=== PATIENT | male | born 1980 | race Caucasian/White ===

== ENCOUNTER 2019-07-28 09:28 | Outpatient (REF) | payer BC, SELFPAY ==
[2019-07-28 14:02] LABS: BUN 22 mg/dL (7-18); CREATININE 1.01 mg/dL (0.70-1.30); Calcium 9.3 mg/dL (8.5-10.1); Calculated LDL 146 mg/dL; Chloride 101 mmol/L (98-107); Cholesterol 228 mg/dL (<200); Glucose 102 mg/dL (74-106); HDL Cholesterol 50 mg/dL (40-60); Potassium 4.6 mmol/L (3.5-5.1); Sodium 138 mmol/L (136-145); Triglyceride 162 mg/dL (<150)
== END 2019-07-28 09:48 ==
LOC: NCHCN 09:28
PROVIDERS: PCP Specialist/Technologist Athletic Trainer; Visit Provider Nurse Practitioner Family
DX: Z00.00 Encounter for general adult medical examination without abnormal findings (principal); I10 Essential (primary) hypertension
CPT/HCPCS: 80048; 80061

== ENCOUNTER 2019-09-09 13:04 | Outpatient (REF) | payer BC, SELFPAY ==
[2019-09-09 14:39] LABS: COMMENT (LAB VIEW ONLY) 155.13 mg/dL; Microalb ug/mg Crea 6.1 ug/mg Cr
[2019-09-09 18:56] LABS: Anion Gap 12.9 mmol/L (3-11); BUN 23 mg/dL (7-18); CO2 24.1 mmol/L (21.0-32.0); CREATININE 0.83 mg/dL (0.70-1.30); Calcium 9.8 mg/dL (8.5-10.1); Chloride 102 mmol/L (98-107); Glucose 100 mg/dL (74-106); Potassium 4.4 mmol/L (3.5-5.1); Sodium 139 mmol/L (136-145)
== END 2019-09-09 13:24 ==
LOC: NCHCN 13:04
PROVIDERS: PCP Specialist/Technologist Athletic Trainer; Visit Provider Nurse Practitioner Family
DX: I10 Essential (primary) hypertension (principal); E78.5 Hyperlipidemia, unspecified; Z00.00 Encounter for general adult medical examination without abnormal findings
CPT/HCPCS: 80048; 82043; 82570

== ENCOUNTER 2020-09-21 14:14 | Outpatient (REF) | payer OTHER, SELFPAY ==
--- NOTE | 2020-09-21 13:20 | SKI_PTH ---
PATIENT: Pal Alexander LOC: [facility] U#:[id number] AGE/SX: 40/M ROOM: RE09/21/[address]: Edd Gil : 1980 BED: DIS: 09/21/2020 SPEC #: [id number] RECD: 09/21/20 17:39 STATUS: MAKENZIE REQ #: [id number] JOSE: 09/21/20 13:[address]: Edd Gil DEPT: Surgical Specimen RECD BY: Ashleigh Plummer ENTERED: 09/21/20 17:40 SP TYPE: KATHIE ALMANZA DR: Dallin Garzon Tissues: 1 - SKIN BIOPSY(SHAVE/PUNCH) Procedures: SKIN LEVEL 4 Comments: [id number]
== END 2020-09-21 14:34 ==
LOC: NCHCN 14:14
PROVIDERS: PCP Specialist/Technologist Athletic Trainer; Visit Provider Nurse Practitioner Family
DX: D22.5 Melanocytic nevi of trunk (principal)
CPT/HCPCS: 88305

== ENCOUNTER 2023-03-25 07:52 | Emergency (ER) | payer BC, SELFPAY ==
[2023-03-25] VITALS (50 sets, daily range): BP systolic 125–171; BP diastolic 63–108; PULSE 67–99; RESP 11–22; TEMP 37; O2SAT 97
--- NOTE | 2023-03-25 07:45 | RT.EKG_ITS ---
APPROVED REPORT Exam: Resting ECG Reason for Exam: possible stroke Patient Location: E HR:75 bpm ECG Measurements Heart Rate 75 AXIS [place] 142 P 35 QRSd 93 QRS -29 QT 370 T 24 QTc 413 Conclusion Sinus rhythm...normal P axis, V-rate 60- 99
--- NOTE | 2023-03-25 08:00 | DI.CT_ITS ---
Exam(s) CT BRAIN NECK CTA EXAM: CT BRAIN NECK CTA CLINICAL HISTORY: CN III palsy, facial droop. TECHNIQUE: Imaging Protocol: Axial CT angiography was performed with multi-slice acquisition and mu lti-planar and/or 3D reconstructions. CONTRAST MATERIAL: Intravenous: Omnipaque 350 contrast volume:85 mL COMPARISON: No exams were available for comparison FINDINGS: CT Head W/O and W: Ventricles and Extra axial spaces: Hemorrhage is seen in the 3rd and lateral ventricles as described below. Hemorrhage: There is acute hemorrhage seen in the right mid brain and tectum with hemorrhage extendin g into the 3rd ventricle. There is also hemorrhage seen in the frontal horns of both lateral ventric les. There does appear to be some mass effect on the sylvian aqueduct. There is no significant dila tation of the ventricular system at this time. Cerebral parenchyma: Please see the above section under hemorrhage. Midline shift: None. Brainstem/Cerebellum: Normal. Calvarium: Normal. Visualized Paranasal sinuses/Mastoids: Clear. Soft Tissues: Unremarkable. Enhancement: Unremarkable. CTA Neck W: Common Carotid: Right: No dissection, occlusion or significant stenosis. Left: No dissection, occlusion or significant stenosis. External Carotid: Right: No occlusion or significant stenosis. Left: No occlusion or significant stenosis. Internal Carotid: Right: No dissection, occlusion or significant stenosis. Left: No dissection, occlusion or significant stenosis. Vertebral Artery: Right: No dissection, occlusion or significant stenosis. Left: No dissection, occlusion or significant stenosis. Lung Apices: Normal. Bones: Within normal limits for the patient's age. Soft Tissues: Normal. Thyroid gland: Unremarkable. CTA Brain W: Internal Carotid Arteries: Normal. Anterior Cerebral Arteries: Right: No aneurysm, occlusion or significant stenosis. Left: No aneurysm, occlusion or significant stenosis. Middle Cerebral Arteries: Right: No aneurysm, occlusion or significant stenosis. Left: No aneurysm, occlusion or significant stenosis. Posterior Cerebral Arteries: Right: No aneurysm, occlusion or significant stenosis. Left: No aneurysm, occlusion or significant stenosis. Vertebral Arteries: Right: No aneurysm, occlusion or significant stenosis. Left: No aneurysm, occlusion or significant stenosis. Basilar Artery: No aneurysm, occlusion or significant stenosis. IMPRESSION: 1. No large vessel occlusion or significant stenosis on the CT angiography of the head. 2. Acute intracranial hemorrhage in the right mid brain/tectum extending into the 3rd ventricle as we ll as the frontal horns of both lateral ventricles. There is question of mass effect on the aqueduct of Sylv[place]. There is no significant dilatation of the ventricular system at this time. 3. No occlusion or significant stenosis on the CT angiography of the neck. RADIATION DOSE DELIVERED: 2,169.1mGy.cm Total DLP DATA REPOSITORY: All CT scans at this facility are submitted to the National Radiology Data Registry (NRDR) Dose Index Registry (DIR) with the [employer] (ACR). RADIATION OPTIMIZATION: All CT scans at this facility use at least one of these dose optimization te chniques: automated exposure control; mA and/or kV adjustment per patient size (includes targeted exa ms where dose is matched to clinical indication); or iterative reconstruction.
[2023-03-25 08:09] LABS: Abs Immature Grans 0.01 10^3/uL (0.0-0.06); Absolute Basophil Count 0.04 10^3/uL (0.0-0.2); Absolute Eosinophil Count 0.11 10^3/uL (0.0-0.7); Absolute Lymphocyte Count 2.51 10^3/uL (1.2-3.4); Absolute Monocyte Count 0.62 10^3/uL (0.1-0.8); Absolute Neutrophil Count 4.34 10^3/uL (1.2-6.7); Basophils % 0.5; Eosinophils % 1.4; HCT 45.7 % (40.0-50.0); Immature Grans % 0.1; Lymphocytes % 32.9; MCH 28.7 pg (27.0-33.0); MCV 82 fL (80-95); MPV 9.5 fL (8.0-11.0); Monocytes % 8.1; Platelet Count 211 10^3/uL (130-400); RBC 5.58 10^6/uL (4.36-5.78); RDW 12.8 % (11.8-14.1); RDW-SD 38.2 fL; WBC 7.63 10^3/uL (4.4-10.8)
--- NOTE | 2023-03-25 08:13 | ED.GENADUL_ITS ---
Discharge Plan Disposition Specific Acute Inpt Facility: [facility] Condition: Serious Discharge Details Chief Complaint: CVA/TIA Clinical Impression: Intracranial hemorrhage Primary Care Provider: Teresa Jarrell V ED Provider: David Waldron Home Meds and New Rx's Prescriptions: No Action No Known Home Meds Medical Decision Making 42 yo male with hx of htn but doesn't take his medication for this, who comes in with chief complaint of double vision starting around 745am this morning. He states yesterday and this morning when he woke up he felt well. He states he was playing video games when he developed double vision, felt the right side of his face was numb and he felt tingling in his left arm. Denies fevers, chills, chest pain or shortness of breath. He does have a mild headache as well. He is ambulatory on arrival and is caox4 speaking clearly. His right eye is down and out. When he closes his right eye his double vision resolves. He is able to move both eyes in all directions other then the right eye he can't look down, the eye will just move to the right and down position. He has very mild facial paralysis with smile asymmetry with the right corner slightly lower then the left corner. No drift, good strength in all extremities and no deficits with sensation in the arms, NIH of 2 due to 1 for horizontal extraocular movements and 1 for facial palsy. pt's ct shows heomrrohage of the right midbrain/tectum extending into the 3rd ventricle, pt stable no new symptoms or exam changes, bp 129/72 now, [place] [facility] [place] images and case and did not feel it required surgical intervention and then spoke with neurology who reviewed case and images and requested pt be transferred to their ED for eval, accepting provider is Dr. Leavitt, pt stable, his right eye seems to have improved slightly, only mildly off midline at this time. GCS 15. He is on a nicardipine drip now as his bp was 168 systolic and local ems can't transport with this medication, he will be transported via [facility] Differential Diagnosis Differential Diagnosis: CN III palsy, cva, aneurysm Imaging Data Radiologic Study: Attestation: I personally reviewed and interpreted this imaging study as follows: Imaging: X-Ray Radiologist's impression: no acute findings Radiologic Study #2: Attestation: I personally reviewed and interpreted this imaging study as follows: Imaging: CT Scan Radiologist's impression: IMPRESSION: 1. No large vessel stenosis or occlusion. 2. Hemorrhage of the right midbrain/tectum extending anteriorly into the 3rd ventricle as well as into the frontal horns of the lateral ventricles. There is questionable mass effect on the aqueduct of Sylvius. No overt hydrocephalus. 3. The basal veins of Matty are not clearly visualized. This may reflect thrombosis or anatomic variation. Lab Data Lab results reviewed: Yes I reviewed the patient's lab results. ECG Data Attestation: I personally reviewed and interpreted this ECG (s) as follows: Prior ECG tracings: not available for review Interpretation: sinus rate of 75, pr 142, qtc 413, no acute ischemic findings HPI General Mode of arrival: ambulatory . Date/Time Provider Initiated Documentation: 03/25/23 07:57 . Limitations to Documentation: no limitations . Information obtained by: patient . History of Present Illness 42 year old M presents to the emergency department with the chief complaint of double vision, described as moderate, and is localized to the head. Patient reports no radiation. Patient started experiencing this minute(s) (30) and it has been constant. No relieving factors improve symptom(s), No exacerbating factors reported . Patient notes denies chest pain, fever/chills and shortness of breath. Patient did receive the following treatments prior to arrival, none Related Data Home Medications Medication Instructions Recorded Confirmed Unknown [No Known Home Meds] 03/25/23 03/25/23 Allergies Allergy/AdvReac Type Severity Reaction Status Date / Time No Known Allergies Allergy Unverified 03/25/23 07:59 General Stated Complaint: CVA/TIA MARKO: 2 Review of Systems All systems reviewed & are unremarkable except as noted in HPI and below Constitutional Constitutional: Denies chills and Denies fever(s) ENT Ears, Nose, Mouth, and Throat: Denies change in voice Cardiovascular Cardiovascular: Denies chest pain and Denies dyspnea Respiratory Respiratory: Denies cough and Denies dyspnea Gastrointestinal Gastrointestinal: Denies abdominal pain, Denies nausea and Denies vomiting Integumentary/Breasts Skin/Breast: Denies rash PFSH All Active Problems (Updated 03/25/23 @ 10:30 by David Waldron MD) Intracranial hemorrhage (Acute) Social History Smoking/Tobacco Use Status: Never Smoking risk assessment performed?: Yes Alcohol Intake: current Alcohol Intake frequency: 0-2 drinks per day Substance use type: does not use Do you feel safe at home: Yes Do you feel safe in your relationship?: Yes Exam Const General: no acute distress Orientation: alert HENNJ Head: normal to inspection Ears: external ears normal General nose exam: external nose normal Mouth: moist mucous membranes Eyes Periorbital: periorbital findings normal Conjunctivae: conjunctivae normal Neck Neck: normal visual inspection Resp Effort & Inspection: normal respiratory effort and able to speak in complete sentences Cardio Rate: regular rate Skin General skin exam: no rashes or lesions noted Neuro General: patient alert and patient oriented x3 Extrem General: normal to inspection Psych Mental Status: mental status grossly normal Course Vital Signs Vital signs: Vital Signs Pulse 76 03/25/23 07:56 Respiratory Rate 22 03/25/23 07:56 Blood Pressure 163/106 H 03/25/23 07:56 Pulse Oximetry 97 03/25/23 07:56 Pulse 76 03/25/23 07:56 Respiratory Rate 21 03/25/23 08:05 Respiratory Effort Normal 03/25/23 08:05 Blood Pressure 163/106 H 03/25/23 07:56 Blood Pressure Position Supine 03/25/23 07:56 Pulse Oximetry 97 03/25/23 07:56 Pain Level 4 03/25/23 07:56 Lab/Test Results Lab/Test Results: Laboratory Tests Range/Units 03/25/23 08:00 WBC (4.4-10.8) 10^3/uL 7.63 RBC (4.36-5.78) 10^6/uL 5.58 Hgb (13.5-17.5) g/dL 16.0 Hct (40.0-50.0) % 45.7 MCV (80-95) fL 82 MCH (27.0-33.0) pg 28.7 MCHC (32.0-36.0) % 35.0 RDW (11.8-14.1) % 12.8 Plt Count (130-400) 10^3/uL 211 MPV (8.0-11.0) fL 9.5 Immature Gran % 0.1 Neutrophils % 57.0 Lymphocytes % 32.9 Monocytes % 8.1 Eosinophils % 1.4 Basophils % 0.5 Nucleated RBC % (0.0-0.3) % 0.0 Absolute Neutrophils (1.2-6.7) 10^3/uL 4.34 Absolute Lymphocytes (1.2-3.4) 10^3/uL 2.51 Absolute Monocytes (0.1-0.8) 10^3/uL 0.62 Absolute Eosinophils (0.0-0.7) 10^3/uL 0.11 Absolute Basophils (0.0-0.2) 10^3/uL 0.04 Critical Care Time Critical Care Time Critical Care Time: Yes Total Critical Care Time: 60 (minutes) Attestation: Time spent reviewing labs, frequent reassessments and hemodynamic monitoring in a patient with intracranial hemorrhage and potential to deteriorate at any time and also requiring IV nicardipine for blood pressure control
[2023-03-25 08:23] LABS: PTT Activated 27.5 sec (21.5-31.9); Prothrombin Time 10.1 sec (9.3-11.0)
[2023-03-25 08:36] LABS: ALT 102 U/L (16-63); AST 31 U/L (15-37); Albumin 4.6 g/dL (3.4-5.0); Alkaline Phosphatase 95 U/L (46-116); Anion Gap 8.5 mmol/L (3-11); BUN 17 mg/dL (7-18); Bilirubin, Total 1.1 mg/dL (0.2-1.0); CO2 29.5 mmol/L (21.0-32.0); CREATININE 1.1 mg/dL (0.70-1.30); Calcium 9.5 mg/dL (8.5-10.1); Chloride 104 mmol/L (98-107); Estimated GFR 86.49 (mL/min/1.73m2); Glucose 124 mg/dL (74-106); Magnesium 2.1 mg/dL (1.8-2.4); Potassium 4.1 mmol/L (3.5-5.1); Sodium 142 mmol/L (136-145); TSH (W/Ref FT4) 1.49 uIU/mL (0.36-3.74); Total Protein 8.6 g/dL (6.4-8.2); Troponin I < 50 ng/L (<or=60)
[2023-03-25] MEDS: Normal Saline - Diluent 50 ML VIAL IJ (08:37)
[2023-03-25] MEDS: Omnipaque 350 MG/ML 100 ML BTL 85 ML IJ (08:37)
[2023-03-25] MEDS: Normal Saline Flush 10 ML SYR IVP (08:38)
[2023-03-25 08:40] LABS: ETHANOL BLOOD < 3.0 mg/dL (<10)
--- NOTE | 2023-03-25 08:41 | DI.RAD_ITS ---
Exam(s) XR CHEST 1V IN DI DEPT EXAM: XR CHEST 1V IN DI DEPT CLINICAL HISTORY: cva TECHNIQUE: 2D digital imaging was performed of the chest. One image was obtained. An AP view was ob tained. COMPARISON: No exams were available for comparison FINDINGS: MEDIASTINUM: Normal. HEART: Normal. PULMONARY VASCULATURE: Normal. LUNGS: Clear. PLEURAL SPACE: No pleural effusion or pneumothorax. BONE:Within normal limits for the patient's age. OTHER FINDINGS:Normal. IMPRESSION: No acute pulmonary findings. DATA REPOSITORY: RADIATION DOSE DELIVERED:
--- NOTE | 2023-03-25 09:11 | DI.VRAD_ITS ---
PROCEDURE INFORMATION: Exam: XR Chest Exam date and time: 03/25/2023 8:37 AM Age: 42 years old Clinical indication: Other: Cn iii palsy, facial droop TECHNIQUE: Imaging protocol: Radiologic exam of the chest. Views: 1 view. COMPARISON: CT BRAIN NECK CTA 03/25/2023 8:18 AM FINDINGS: Lungs: Unremarkable. No consolidation. Pleural spaces: Unremarkable. No pleural effusion. No pneumothorax. Heart/Mediastinum: Unremarkable. No cardiomegaly. Bones/joints: Unremarkable. IMPRESSION: No acute findings. Dictated and Authenticated by: Bryan Beltran MD. Ordering:ADALGISA Hernandez MD
--- NOTE | 2023-03-25 09:11 | DI.VRAD_ITS ---
Addendum created by Bryan Beltran MD on 03/25/2023 9:11:20 AM EDT: THIS REPORT CONTAINS FINDINGS THAT MAY BE CRITICAL TO PATIENT CARE. The findings were verbally communicated via telephone conference with David Waldron at 9:06 AM EDT on 03/25/2023. The findings were acknowledged and understood. Initial report created on 03/25/2023 9:10:35 AM EDT: PROCEDURE INFORMATION: Exam: CTA Head With Contrast, Arteriography Exam date and time: 03/25/2023 8:18 AM Age: 42 years old Clinical indication: Stroke-like symptoms; Other: Cn iii palsy, facial droop TECHNIQUE: Imaging protocol: Computed tomographic angiography of the head with contrast. Exam focused on the arteries. 3D rendering (Not supervised by radiologist): MIP and/or 3D reconstructed images were created by the technologist. Contrast material: OMNIPAQUE 350; Contrast volume: 85 ml; Contrast route: INTRAVENOUS (IV); COMPARISON: No relevant prior studies available. FINDINGS: ANTERIOR CIRCULATION: Right internal carotid artery: Intracranial segment is patent with no significant stenosis. No aneurysm. Right middle cerebral artery: No occlusion or significant stenosis. No aneurysm. Right anterior cerebral artery: No occlusion or significant stenosis. No aneurysm. Left internal carotid artery: Intracranial segment is patent with no significant stenosis. No aneurysm. Left middle cerebral artery: No occlusion or significant stenosis. No aneurysm. Left anterior cerebral artery: No occlusion or significant stenosis. No aneurysm. POSTERIOR CIRCULATION: Right vertebral artery: No occlusion or significant stenosis. No aneurysm. Left vertebral artery: No occlusion or significant stenosis. No aneurysm. Basilar artery: No occlusion or significant stenosis. No aneurysm. Right posterior cerebral artery: No occlusion or significant stenosis. No aneurysm. Left posterior cerebral artery: No occlusion or significant stenosis. No aneurysm. Brain: Retrocerebellar cysts. Cerebral ventricles: Hemorrhage of the right midbrain/tectum extending anteriorly into the 3rd ventricle as well as into the frontal horns of the lateral ventricles. There is questionable mass effect on the aqueduct of Sylvius. No overt hydrocephalus. Bones/joints: Unremarkable. No acute fracture. Soft tissues: Unremarkable. IMPRESSION: 1. No large vessel stenosis or occlusion. 2. Hemorrhage of the right midbrain/tectum extending anteriorly into the 3rd ventricle as well as into the frontal horns of the lateral ventricles. There is questionable mass effect on the aqueduct of Sylvius. No overt hydrocephalus. 3. The basal veins of Matty are not clearly visualized. This may reflect thrombosis or anatomic variation. PROCEDURE INFORMATION: Exam: CTA Neck With Contrast Exam date and time: 03/25/2023 8:18 AM Age: 42 years old Clinical indication: Stroke-like symptoms; Other: Cn iii palsy, facial droop TECHNIQUE: Imaging protocol: Computed tomographic angiography of the neck with contrast. 3D rendering (Not supervised by radiologist): MIP and/or 3D reconstructed images were created by the technologist. Contrast material: OMNIPAQUE 350; Contrast volume: 85 ml; Contrast route: INTRAVENOUS (IV); COMPARISON: No relevant prior studies available. FINDINGS: Right common carotid artery: No stenosis. No dissection or occlusion. Right internal carotid artery: No stenosis of the extracranial segment. No dissection or occlusion. Right external carotid artery: No occlusion or stenosis of the origin. Left common carotid artery: No stenosis. No dissection or occlusion. Left internal carotid artery: No stenosis of the extracranial segment. No dissection or occlusion. Left external carotid artery: No occlusion or stenosis of the origin. Right vertebral artery: No stenosis. No dissection or occlusion. Left vertebral artery: No stenosis. No dissection or occlusion. Soft tissues: Normal. No significant soft tissue swelling. Bones/joints: No acute fracture. IMPRESSION: No stenosis or occlusion. REFERENCES: NASCET CRITERIA. The degree of stenosis in the cervical segment of the internal carotid artery is based on NASCET criteria. Normal is no stenosis. Mild is less than 50% stenosis. Moderate is 50-69% stenosis. Severe is 70% to 99% stenosis. Total occlusion is no detectable patent lumen. Dictated and Authenticated by: Bryan Beltran MD. Ordering:ADALGISA Hernandez MD
[2023-03-25] MEDS: niCARdipine 25 MG in Normal Saline 240 ML 50 MG IV (10:21)
[2023-03-25] MEDS: Acetaminophen 500 MG TAB (11:10)
[2023-03-25 11:38] LABS: Bilirubin Negative (Negative); Blood Negative (Negative); Clarity Clear (Clear); Glucose Negative (Negative); Ketones Negative (Negative); Leukocyte Esterase Negative (Negative); Nitrite Negative (Negative); Specific Gravity 1.015 (1.005-1.025); Urobilinogen 0.2 mg/dL (Up to 0.2); pH 7.5 (5-8)
[2023-03-25 11:44] LABS: *AMPHETAMINES SCREEN URINE Negative (Negative); *BARBITURATES SCREEN URINE Negative (Negative); *BENZODIAZEPINES SCREEN URINE Negative (Negative); Cannabinoids THC Negative (Negative); Cocaine Screen,Urine Negative (Negative); METHADONE URINE SCREEN Negative (Negative); OPIATES URINE SCREEN Negative (Negative)
[2023-03-25 11:46] LABS: Tricyclic Antidepressants Negative (Negative)
== END 2023-03-25 11:16 | disposition short-term general hospital (02) ==
PROVIDERS: Emergency Provider Emergency Medicine; PCP Family Medicine
DX: I62.9 Nontraumatic intracranial hemorrhage, unspecified (principal); I10 Essential (primary) hypertension; R29.702 NIHSS score 2
CPT/HCPCS: 36415; 70496; 70498; 80053; 80307; 93005; 96365; 99291; 71045; 80320; 81003; 83735; 84443; 84484; 85025; 85610; 85730; 93010; J3490

== ENCOUNTER 2023-12-20 16:03 | Outpatient (REF) | payer BC, SELFPAY ==
[2023-12-20 16:28] LABS: AST 35 U/L (15-37); Albumin 4.3 g/dL (3.4-5.0); Alkaline Phosphatase 89 U/L (46-116); Anion Gap 12.5 mmol/L (3-11); BUN 16 mg/dL (7-18); Bilirubin, Total 0.7 mg/dL (0.2-1.0); CO2 27.5 mmol/L (21.0-32.0); CREATININE 1.1 mg/dL (0.70-1.30); Calcium 9.2 mg/dL (8.5-10.1); Calculated LDL 196 mg/dL (<100); Chloride 105 mmol/L (98-107); Cholesterol 279 mg/dL (<200); Estimated GFR 85.95 (mL/min/1.73m2); Glucose 125 mg/dL (74-106); HDL Cholesterol 47 mg/dL (40-60); Potassium 4.5 mmol/L (3.5-5.1); Sodium 145 mmol/L (136-145); Total Protein 7.6 g/dL (6.4-8.2); Triglyceride 183 mg/dL (<150)
[2023-12-20 17:05] LABS: Hemoglobin A1C 5.9 % (<5.7)
[2023-12-20 17:08] LABS: ALT 107 U/L (16-63)
[2023-12-23 18:27] LABS: Testosterone, Total 344 ng/dL (240-950)
== END 2023-12-20 16:04 | disposition home or self-care (01) ==
LOC: NCHCN 16:03
PROVIDERS: PCP Nurse Practitioner Family; Visit Provider Physician Assistant
DX: I10 Essential (primary) hypertension (principal); E29.1 Testicular hypofunction; R73.09 Other abnormal glucose
CPT/HCPCS: 80053; 80061; 84403; 83036

== ENCOUNTER 2024-03-13 17:13 | Observation (INO) | payer BC, SELFPAY ==
[2024-03-13] VITALS (39 sets, daily range): BP systolic 137–172; BP diastolic 62–89; PULSE 71–94; RESP 13–30; TEMP 36.6; O2SAT 92–97
--- NOTE | 2024-03-13 17:15 | DI.CT_ITS ---
Exam(s) CT CERVICAL SPINE WO EXAM: CT CERVICAL SPINE WO CLINICAL HISTORY: Fall, head injury, Hx of CVA. TECHNIQUE: Imaging Protocol: Axial computed tomography images with coronal and sagittal reformatted images were created and reviewed COMPARISON: CT CT BRAIN NECK CTA from 03/25/2023 FINDINGS: Bones: No acute fracture or subluxation. Soft Tissues: Unremarkable. Lung Apices: Clear. IMPRESSION: No acute fracture or subluxation in the cervical spine. RADIATION DOSE DELIVERED: 712.49mGy.cm Total DLP 712.49mGy.cm Total DLP DATA REPOSITORY: All CT scans at this facility are submitted to the National Radiology Data Registry (NRDR) Dose Index Registry (DIR) with the [employer] (ACR). RADIATION OPTIMIZATION: All CT scans at this facility use at least one of these dose optimization te chniques: automated exposure control; mA and/or kV adjustment per patient size (includes targeted exa ms where dose is matched to clinical indication); or iterative reconstruction.
--- NOTE | 2024-03-13 17:15 | DI.CT_ITS ---
Exam(s) CT HEAD - STROKE PROTOCOL EXAM: CT HEAD - STROKE PROTOCOL CLINICAL HISTORY: Syncope, CRUZ. TECHNIQUE: Imaging Protocol: Axial computed tomography images with coronal and sagittal reformatted images were created and reviewed COMPARISON: CT CT BRAIN NECK CTA from 03/25/2023 FINDINGS: Ventricles and Extra axial spaces: Normal in size and morphology for the patient's age. Hemorrhage: None. Cerebral parenchyma: The winchester-white matter differentiation is well maintained. No mass effect is deonna ntified. Midline shift: None. Brainstem/Cerebellum: Normal. Calvarium: Normal. Visualized Paranasal sinuses/Mastoids: There is mucosal thickening in the visualized paranasal sinuse s. No air-fluid levels are seen. The mastoid air cells are clear. Soft Tissues: Unremarkable. IMPRESSION: No acute intracranial process. RADIATION DOSE DELIVERED: 978.89mGy.cm Total DLP DATA REPOSITORY: All CT scans at this facility are submitted to the National Radiology Data Registry (NRDR) Dose Index Registry (DIR) with the [employer] (ACR). RADIATION OPTIMIZATION: All CT scans at this facility use at least one of these dose optimization te chniques: automated exposure control; mA and/or kV adjustment per patient size (includes targeted exa ms where dose is matched to clinical indication); or iterative reconstruction.
--- NOTE | 2024-03-13 17:15 | RT.EKG_ITS ---
APPROVED REPORT Exam: Resting ECG Reason for Exam: syncope Patient Location: E HR:76 bpm ECG Measurements Heart Rate 76 AXIS [place] 168 P 52 QRSd 95 QRS -26 QT 363 T 43 QTc 410 Conclusion Sinus rhythm...normal P axis, V-rate 60- 99 I have reviewed and interpreted ECG and agree with software generated interpretation. Physician: no stemi
--- NOTE | 2024-03-13 17:26 | ED.GENADUL_ITS ---
Discharge Plan Disposition Patient Disposition: Admit to [facility] Condition: Stable Discharge Details Clinical Impression: Syncope and collapse Primary Care Provider: GOPAL TORRES ED Provider: Kely Garcia Home Meds and New Rx's Prescriptions: No Action atorvastatin 40 mg tablet 40 mg PO DAILY valsartan 320 mg tablet 320 mg PO DAILY omeprazole 20 mg capsule,delayed release(DR/EC) 20 mg PO DAILY propranolol 80 mg capsule,extended release 24 hr 80 mg PO DAILY amlodipine 5 mg tablet 5 mg PO DAILY HPI General Mode of arrival: wheelchair . Date/Time Provider Initiated Documentation: 03/13/24 17:19 . Limitations to Documentation: no limitations . Information obtained by: patient, family, RN notes reviewed and old records reviewed . HPI Narrative: Patient presents to the ER via wheelchair with significant other with chief complaint of syncopal episode which occurred prior to arrival. He did fall backwards over a banister striking the back of his head after a coughing episode and turning red. 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 He denies any neck pain or back pain or any other associated symptoms. PMHx hypercholesterolemia, hypertension, CVA, GERD Related Data Home Medications ?Medication ?Instructions ?Recorded ?Confirmed amlodipine 5 mg tablet 5 mg PO DAILY 03/13/24 03/13/24 atorvastatin 40 mg tablet 40 mg PO DAILY 03/13/24 03/13/24 omeprazole 20 mg capsule,delayed 20 mg PO DAILY 03/13/24 03/13/24 release propranolol 80 mg capsule,24 80 mg PO DAILY 03/13/24 03/13/24 hr,extended release valsartan 320 mg tablet 320 mg PO DAILY 03/13/24 03/13/24 Allergies Allergy/AdvReac Type Severity Reaction Status Date / Time No Known Allergies Allergy Unverified 03/13/24 17:33 General Stated Complaint: CVA/TIA MARKO: 2 Review of Systems All systems reviewed & are unremarkable except as noted in HPI and below Constitutional Constitutional: Reports as per HPI and Reports headache(s) ENT Ears, Nose, Mouth, and Throat: Reports headache(s) Cardiovascular Cardiovascular: Reports syncope Respiratory Respiratory: Reports cough Neurologic Neurologic: Reports as per HPI, Reports syncope, Reports headache(s) and Denies convulsions Exam Narrative Exam Narrative: General: Well Developed, Awake and Alert, conversant. Skin: Warm and Dry HEENT: Head: No palpable deformities, Normocephalic Eyes: Pupils PERRLA, EOM's intact. No periorbital eccymosis or step off, Mild horizontal Nystagmus, Ears: Canal patent. Tympanic membranes are clear . No palmer's sign, no hemptympanum. Nose/Face: Atraumatic. Facial bones nontender to palpation and stable with manipulation. Mouth/Throat: No intraoral trauma. Teeth and mandible are intact. Neck: no step off, no deformity to palpation of C-spine. Trachea midline. Chest: No surface trauma. Nontender without crepitus or deformity. Lungs clear to ausculatation bilaterally. Heart: RRR, no rubs, murmurs or gallop. Abdomen: No abrasions, ecchymosis, or surface trauma. Nondistended. Nontender to palpation no guarding, rebound, or rigidity. Pelvis: Nontender to palpation and stable to compression. Femoral pulses strong and equal Extremities: no surface trauma. Sensation intact. Peripheral pulses intact and equal. Neuro: ANO x4, GCS 15, cranial nerves II through XII intact. Motor and sensory exam nonfocal. Reflexes are symmetric. Course Vital Signs Vital signs: Vital Signs Pulse 86 03/13/24 17:22 Respiratory Rate 20 03/13/24 17:22 Pulse 86 03/13/24 17:22 Respiratory Rate 20 03/13/24 17:22 Blood Pressure Position Sitting 03/13/24 17:22 Oxygen Delivery Method Room Air 03/13/24 17:22 Oxygen Flow Rate 0 03/13/24 17:22 Pain Level 3 03/13/24 17:22 Medical Decision Making Patient presents to the ER via wheelchair with significant other with chief complaint of syncopal episode which occurred prior to arrival. He did fall backwards over a banister striking the back of his head after a coughing episode and turning red. He fell approximately 6 feet. He had another similar episode on March 06 1 week ago with a syncopal episode while sitting in a chair after another coughing fit and was never evaluated at that time. 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 He denies any neck pain or back pain or any other associated symptoms. CT head C-spine ordered, patient placed in a c-collar upon arrival, no signs of trauma at this time. Patient is ANO x 3 slightly slow to respond no pronator drift. Horizontal nystagmus noted, slight complaint of bilateral facial numbness, will reevaluate after CT imaging. BGL upon arrival is 132, stroke alert called and patient transferred to CT, EKG was reviewed by Dr. Johnson and myself, ER attending, old EKG available for review. CT head shows no acute intracranial abnormality. Differential diagnose includes CAD, ID, syncopal episode, PE, Vasovagal episode CT C-spine within normal limits, will instruct ED staff to remove c-collar, CT chest rule out PE ordered due to cough and syncopal episode with continued midsternal chest pain. However patient is not tachycardic, On patient re-evaluation, he is c/o some soreness to his back and neck. Remains A&O x 3 . Awaiting serial Troponin, informed by staff counselor family is requesting admission, according to Mcdonald Franciso Syncope rule due to SOB, patient does warrant further workup and evaluation, will consider speaking with hospitalist, pending Trop. Due to recurrent syncopal episodes will page hospitalist for admission for further monitoring and evaluation. 2013: Hospitalist paged. 2037: Spoke with Dr. Dutton who agrees to accept patient for admission for observation, patient c/o 5/10 headache will give Ibuprofen. Informed patient and family of plan of care, verbalized understanding. This text was generated using Visiogenation system, please disregard any oddities of phrase or misspellings. Medical Records Medical records reviewed: Yes I reviewed the patient's medical records. Imaging Data Radiologic Study: Imaging: CT Scan Radiologist's impression: OMPARISON: CR XR CHEST 1V IN DI DEPT 03/25/2023 08:37 FINDINGS: Pulmonary arteries: Suboptimal pulmonary artery contrast bolus. No main to segmental pulmonary artery emboli. Aorta: No aortic aneurysm. No aortic dissection. Lungs: No airspace consolidation. Pleural spaces: No pneumothorax. No pleural effusion. Heart: No cardiomegaly. No pericardial effusion. Lymph nodes: No enlarged lymph nodes. Liver: The visualized liver is fatty. Bones/joints: Benign midthoracic hemangioma. No acute fracture or subluxation. Soft tissues: No suspicious lesions. IMPRESSION: Suboptimal pulmonary artery contrast bolus. No main to segmental pulmonary artery emboli. Radiologic Study #2: Imaging: CT Scan Radiologist's impression: COMPARISON: CT CT BRAIN NECK CTA from 03/25/2023 FINDINGS: Ventricles and Extra axial spaces: Normal in size and morphology for the patient's age. Hemorrhage: None. Cerebral parenchyma: The winchester-white matter differentiation is well maintained. No mass effect is identified. Midline shift: None. Brainstem/Cerebellum: Normal. Calvarium: Normal. Visualized Paranasal sinuses/Mastoids: There is mucosal thickening in the visualized paranasal sinuses. No air-fluid levels are seen. The mastoid air cells are clear. Soft Tissues: Unremarkable. IMPRESSION: No acute intracranial process. Lab Data Lab results reviewed: Yes I reviewed the patient's lab results. Labs: Laboratory Tests Range/Units 03/13/24 17:50 WBC (4.4-10.8) 10^3/uL 9.67 RBC (4.36-5.78) 10^6/uL 5.08 Hgb (13.5-17.5) g/dL 14.8 Hct (40.0-50.0) % 42.2 MCV (80-95) fL 83 MCH (27.0-33.0) pg 29.1 MCHC (32.0-36.0) % 35.1 RDW (11.8-14.1) % 12.7 Plt Count (130-400) 10^3/uL 194 MPV (8.0-11.0) fL 9.8 Immature Gran % % 0.4 Neutrophils % % 68.6 Lymphocytes % % 20.9 Monocytes % % 7.5 Eosinophils % % 2.1 Basophils % % 0.5 Nucleated RBC % (0.0-0.3) % 0.0 Absolute Neutrophils (1.2-6.7) 10^3/uL 6.63 Absolute Lymphocytes (1.2-3.4) 10^3/uL 2.02 Absolute Monocytes (0.1-0.8) 10^3/uL 0.73 Absolute Eosinophils (0.0-0.7) 10^3/uL 0.20 Absolute Basophils (0.0-0.2) 10^3/uL 0.05 Sodium (136-145) mmol/L 140 Potassium (3.5-5.1) mmol/L 3.6 Chloride (98-107) mmol/L 102 Carbon Dioxide (21.0-32.0) mmol/L 29.6 Anion Gap (3-11) mmol/L 8.4 BUN (7-18) mg/dL 15 Creatinine (0.70-1.30) mg/dL 1.2 Est GFR (CKD-EPI 2020) (mL/min/1.73m2) 77.43 Glucose (74-106) mg/dL 132 H Calcium (8.5-10.1) mg/dL 9.1 Magnesium (1.8-2.4) mg/dL 2.1 Total Bilirubin (0.2-1.0) mg/dL 1.12 H AST (15-37) U/L 39 H ALT (16-63) U/L 104 H Alkaline Phosphatase (46-116) U/L 121 H Troponin I (< or =60) ng/L < 50 Total Protein (6.4-8.2) g/dL 8.0 Albumin (3.4-5.0) g/dL 4.1 Quality:SDOH Health Related Social Needs: 2 No Data to Display PFSH All Active Problems (Updated 03/13/24 @ 21:34 by Tam Granados) Elevated liver function tests (Acute) Hyperlipemia, mixed (Chronic) Intracranial hemorrhage (Chronic) HTN (hypertension) (Chronic) Syncope and collapse (Acute) Social History Smoking/Tobacco Use Status: Never Smoking risk assessment performed?: Yes Alcohol Intake: current Alcohol Intake frequency: 0-2 drinks per day Substance use type: does not use Do you feel safe at home: Yes Do you feel safe in your relationship?: Yes
--- NOTE | 2024-03-13 18:00 | DI.CT_ITS ---
Exam(s) CT CHEST PE CTA EXAM: CT CHEST PE CTA CLINICAL HISTORY: Fall, Chest Pain, Syncope. TECHNIQUE: Imaging Protocol: Axial CT angiography was performed with multi-slice acquisition and mu lti-planar reconstructions as well as axial, coronal and sagittal MIP reconstructions. CONTRAST MATERIAL: Intravenous: Omnipaque 350 Contrast volume:100 ml COMPARISON: CT CT BRAIN NECK CTA from 03/25/2023 FINDINGS: Pulmonary Arteries: Suboptimal contrast timing. No evidence of filling defect to suggest pulmonary e mboli. Branch vessel emboli not entirely excluded. Tracheobronchial tree: No mucous plugging. Mediastinum and Elisha: No dominant adenopathy or fluid collection. Pulmonary parenchyma: No consolidation or dominant measurable mass. Pleura: No effusion or pneumothorax. Heart: The heart is not dilated. No coronary artery calcifications are seen. Aorta: Thoracic aorta non-dilated. No dissection. Upper abdomen: No acute findings. Marked hepatic steatosis. Bones: Hemangioma T8. Mild degenerative changes. No compression fracture. Tubes, Catheters, and Lines: None Soft tissues: Unremarkable. IMPRESSION: No evidence of pulmonary embolism or other acute abnormality.. RADIATION DOSE DELIVERED: 581.04mGy.cm Total DLP DATA REPOSITORY: All CT scans at this facility are submitted to the National Radiology Data Registry (NRDR) Dose Index Registry (DIR) with the [employer] (A[employer]). RADIATION OPTIMIZATION: All CT scans at this facility use at least one of these dose optimization te chniques: automated exposure control; mA and/or kV adjustment per patient size (includes targeted exa ms where dose is matched to clinical indication); or iterative reconstruction.
[2024-03-13 18:07] LABS: Abs Immature Grans 0.04 10^3/uL (0.0-0.06); Absolute Basophil Count 0.05 10^3/uL (0.0-0.2); Absolute Lymphocyte Count 2.02 10^3/uL (1.2-3.4); Absolute Monocyte Count 0.73 10^3/uL (0.1-0.8); Absolute Neutrophil Count 6.63 10^3/uL (1.2-6.7); Basophils % 0.5 %; Eosinophils % 2.1 %; HCT 42.2 % (40.0-50.0); HGB 14.8 g/dL (13.5-17.5); Immature Grans % 0.4 %; Lymphocytes % 20.9 %; MCH 29.1 pg (27.0-33.0); MCHC 35.1 % (32.0-36.0); MCV 83 fL (80-95); MPV 9.8 fL (8.0-11.0); Monocytes % 7.5 %; Neutrophils % 68.6 %; Platelet Count 194 10^3/uL (130-400); RBC 5.08 10^6/uL (4.36-5.78); RDW 12.7 % (11.8-14.1); RDW-SD 38.2 fL; WBC 9.67 10^3/uL (4.4-10.8)
[2024-03-13 18:22] LABS: ALT 104 U/L (16-63); AST 39 U/L (15-37); Albumin 4.1 g/dL (3.4-5.0); Alkaline Phosphatase 121 U/L (46-116); Anion Gap 8.4 mmol/L (3-11); BUN 15 mg/dL (7-18); Bilirubin, Total 1.12 mg/dL (0.2-1.0); CO2 29.6 mmol/L (21.0-32.0); CREATININE 1.2 mg/dL (0.70-1.30); Calcium 9.1 mg/dL (8.5-10.1); Chloride 102 mmol/L (98-107); Estimated GFR 77.43 (mL/min/1.73m2); Glucose 132 mg/dL (74-106); Magnesium 2.1 mg/dL (1.8-2.4); Potassium 3.6 mmol/L (3.5-5.1); Sodium 140 mmol/L (136-145); Troponin I < 50 ng/L (< or =60)
[2024-03-13] MEDS: Normal Saline - Diluent 50 ML VIAL IJ (18:48)
[2024-03-13] MEDS: Normal Saline Flush 10 ML SYR IVP (18:48)
[2024-03-13] MEDS: Omnipaque 350 MG/ML 100 ML BTL IJ (18:49)
[2024-03-13] MEDS: Normal Saline 1,000 ML 1000 ML IV (19:28)
[2024-03-13 19:39] LABS: Bilirubin Negative (Negative); Blood Small (Negative); Clarity Clear (Clear); Glucose Negative (Negative); Ketones Negative (Negative); Leukocyte Esterase Negative (Negative); Nitrite Negative (Negative); Urobilinogen 0.2 mg/dL (Up to 0.2); pH 5.5 (5-8)
--- NOTE | 2024-03-13 19:40 | DI.VRAD_ITS ---
PROCEDURE INFORMATION: Exam: CTA Chest With Contrast Exam date and time: 03/13/2024 18:55 Age: 43 years old Clinical indication: Chest wall pain; Additional info: Fall, chest pain, syncope TECHNIQUE: Imaging protocol: Computed tomographic angiography of the chest with contrast. Exam focused on the arteries. 3D rendering (Not supervised by radiologist): MIP and/or 3D reconstructed images were created by the technologist. Contrast material: OMNI 350; Contrast volume: 100 ml; Contrast route: INTRAVENOUS (IV); COMPARISON: CR XR CHEST 1V IN DI DEPT 03/25/2023 08:37 FINDINGS: Pulmonary arteries: Suboptimal pulmonary artery contrast bolus. No main to segmental pulmonary artery emboli. Aorta: No aortic aneurysm. No aortic dissection. Lungs: No airspace consolidation. Pleural spaces: No pneumothorax. No pleural effusion. Heart: No cardiomegaly. No pericardial effusion. Lymph nodes: No enlarged lymph nodes. Liver: The visualized liver is fatty. Bones/joints: Benign midthoracic hemangioma. No acute fracture or subluxation. Soft tissues: No suspicious lesions. IMPRESSION: Suboptimal pulmonary artery contrast bolus. No main to segmental pulmonary artery emboli. Dictated and Authenticated by: Fadia Vasques MD. Ordering:LOR Edge MD
[2024-03-13 19:47] LABS: Bacteria Negative HPF (Negative); C & S Indicated? No; Casts Negative LPF (Negative); Crystals Negative HPF (Negative); Epithelial Cells Rare HPF (Negative); Mucus Negative (Negative); WBC 0-2 HPF (0-5)
[2024-03-13 20:35] LABS: Troponin I < 50 ng/L (< or =60)
[2024-03-13] MEDS: Ibuprofen 600 MG TAB PO (21:00)
--- NOTE | 2024-03-13 21:13 | HPE_ITS ---
Date of service: 03/13/24 Time of Service: 21:14 Assessment and Plan Assessment and plan (1) Syncope and collapse: Start date: 03/13/24 Status: Acute Assessment and plan: This is a 43-year-old gentleman who had an intracranial bleed in his mid brain last March 2023 without ongoing sequela but recently had onset of coughing paroxysms where he would not feel to catch his breath and turned red. He had a syncopal episode which was brief and without injury March 06, 2024 while he was sitting and he did not seek medical care at that time. He had another episode of coughing paroxysms, turning red and not being able to catch his breath while climbing his stairs with syncopal episode and falling backwards over the banister 6 foot onto the floor. He did not have any significant injuries and CT of the head was negative. He has no history of easy fainting but he did have coughing paroxysms with wheezing in the past without a history of asthma. He has no sequela from his intracranial bleed but does see neurology at [facility]. He snores and may have sleep apnea and is being treated for hypertension. He has no other cardiac history. His troponins were negative x 2 and EKG appeared normal in the ED. He will be observed for cardiac dysrhythmia with trending labs though troponins require no further follow-up. I will order an echocardiogram with bubble study because of his neurological event though it was not a stroke according to the patient. Also may repeat MRI especially with his fall. Neurology can be consulted at [facility] if there is question whether imaging it is needed with an MRI done within the last 6 months and whether they would want an EEG. This did not appear to be a seizure event but most likely was vasovagal, cough syncope. Patient is a full code. (2) Viral URI with cough: Start date: 03/13/24 Status: Acute Assessment and plan: Symptomatic care with albuterol nebulizers as needed. Patient is not wheezing presently. He is not requiring oxygen. (3) Elevated liver function tests: Start date: 03/13/24 Status: Acute Assessment and plan: Patient does have elevated liver function test and for completion ultrasound abdomen will be performed in the morning. He is not having any abdominal pain. He is not a drinker of alcohol. (4) HTN (hypertension): Status: Chronic Assessment and plan: Slightly elevated the patient will be continued on his usual outpatient medical therapy with follow-up. If the patient does have sleep apnea, this should be treated. Qualifiers: Hypertension type: primary hypertension Qualified Code(s): I10 - Essential (primary) hypertension (5) Intracranial hemorrhage: Status: Resolved Assessment and plan: Patient has history of intracranial hemorrhage which he states was from hypertension and was not a CVA. Follow-up records from [facility] and consult with neurology if needed. He is not acutely ill and neurology consultation from [facility] was not obtained in the ED or upon admission with patient stable. (6) Hyperlipemia, mixed: Status: Chronic Assessment and plan: Continue statin therapy long-term and weight loss with diet would be helpful. If the patient does have sleep apnea, this should be treated. 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 He has no sequela from his intracranial hemorrhage. He reports URI type symptoms with increased cough with wheeze seeing his PCP about 2 weeks ago and being prescribed a rescue inhaler. Patient gave a history of a syncopal episode while sitting down on the march after a coughing spasm and turning red with associated syncope but no fall and was self limited and self resolving without seeking medical care at that time. He had similar episode on the day of admission after a coughing fit while climbing his stairs reporting that he turned red and could not catch his breath syncopize eating and following backwards over his railing 6 feet onto his head without injury. The episode lasted only seconds with him awakening once he fell and he had no postictal state or seizure activity but did have a headache at the time without focal neurological symptoms. He is did not report any diaphoresis or reported chest pain. He was brought to the ED via personal vehicle for evaluation. The patient does give a history of coughing paroxysms years ago with associated wheezing and turning red but no syncope at that time. He does not chronically carry a rescue inhaler though he was prescribed this HFA with his last visit with his PCP recently with his URI symptoms. He did have an acute intracranial hemorrhage March 25, 2023 with transfer to [facility] which they thought was secondary to increased blood pressure. He is treated by his local PCP and does see neurology at [facility] with an MRI within 6 months ago. He does not remember having an echocardiogram. He also snores at night and may have sleep apnea which is untreated. He is overweight but is trying to lose weight. He has no history of diabetes. He has no history of asthma. He has never had problems with fainting in the past. After assessment in the ED the patient was comfortable without repeat episodes of coughing and not requiring oxygen supplementation. He will be observed overnight with follow-up imaging including echocardiogram with bubble study and MRI if needed as well as possible follow-up conversation with neurology at [facility] as to what imaging studies they would advise with his 2 syncopal episodes. He does not see cardiology. He has a full code. Review of Systems Narrative: 13 point review of systems otherwise unrevealing or stable. PFSH All Active Problems (Updated 03/13/24 @ 22:02 by EMERITA PAUL) Viral URI with cough (Acute) Elevated liver function tests (Acute) Hyperlipemia, mixed (Chronic) HTN (hypertension) (Chronic) Syncope and collapse (Acute) Social History Smoking/Tobacco Use Status: Never Smoking risk assessment performed?: Yes Alcohol Intake: current Alcohol Intake frequency: 0-2 drinks per day Substance use type: does not use Housing: house Do you feel safe at home: Yes Do you feel safe in your relationship?: Yes Meds Allergies and Home Medications Allergies Allergy/AdvReac Type Severity Reaction Status Date / Time No Known Allergies Allergy Unverified 03/13/24 17:33 Home Medications ?Medication ?Instructions ?Recorded ?Confirmed ?Type amlodipine 5 mg tablet 5 mg PO DAILY 03/13/24 03/13/24 History atorvastatin 40 mg tablet 40 mg PO DAILY 03/13/24 03/13/24 History omeprazole 20 mg capsule,delayed 20 mg PO DAILY 03/13/24 03/13/24 History release propranolol 80 mg capsule,24 80 mg PO DAILY 03/13/24 03/13/24 History hr,extended release valsartan 320 mg tablet 320 mg PO DAILY 03/13/24 03/13/24 History Exam Narrative Exam Narrative: General: Patient appears appropriate for age, alert and oriented x 3 and in no acute distress. He is moderately obese but also mesomorphic. HEENT: Normocephalic, eyes with pupils equal and react to light symmetrically, extraocular movement intact and sclera anicteric. Oropharynx with moist mucosa and good dentition. Neck: Supple without JVD and no auscultated carotid bruits. Back: Normal posture without CVA tenderness. Lungs: Clear to auscultation percussion with normal aeration and vesicular breath sounds. No focalizing rales or rhonchi and no increased expiratory phase or expiratory wheeze. Heart: Regular rate and rhythm with no murmurs or gallops appreciated. Abdomen: Obese contour, soft and nontender to palpation with no palpable hepatosplenomegaly. Bowel sounds positive all quadrants. No guarding or rebound. Genitalia/rectal: Exam deferred. Extremities: Without clubbing, cyanosis or pitting edema. Peripheral pulses intact. Normal joints and range of motion. Skin: Normal color, warm and dry. Neuro: Cranial nerves II through XII gross intact, no focalizing motor deficits and no tremor. No Babinski's. DTRs are physiologic and symmetrical. Cerebellar testing was not performed. Psych: Normal affect and mood. No abnormal thought processes. Remote and recent memory intact. Results Imaging Imaging Studies: Exam: CTA Chest With Contrast Exam date and time: 03/13/2024 18:55 Age: 43 years old Clinical indication: Chest wall pain; Additional info: Fall, chest pain, syncope TECHNIQUE: Imaging protocol: Computed tomographic angiography of the chest with contrast. Exam focused on the arteries. 3D rendering (Not supervised by radiologist): MIP and/or 3D reconstructed images were created by the technologist. Contrast material: OMNI 350; Contrast volume: 100 ml; Contrast route: INTRAVENOUS (IV); COMPARISON: CR XR CHEST 1V IN DI DEPT 03/25/2023 08:37 FINDINGS: Pulmonary arteries: Suboptimal pulmonary artery contrast bolus. No main to segmental pulmonary artery emboli. Aorta: No aortic aneurysm. No aortic dissection. Lungs: No airspace consolidation. Pleural spaces: No pneumothorax. No pleural effusion. Heart: No cardiomegaly. No pericardial effusion. Lymph nodes: No enlarged lymph nodes. Liver: The visualized liver is fatty. Bones/joints: Benign midthoracic hemangioma. No acute fracture or subluxation. Soft tissues: No suspicious lesions. IMPRESSION: Suboptimal pulmonary artery contrast bolus. No main to segmental pulmonary artery emboli. EXAM: CT HEAD - STROKE PROTOCOL CLINICAL HISTORY: Syncope, CRUZ. TECHNIQUE: Imaging Protocol: Axial computed tomography images with coronal and sagittal reformatted images were created and reviewed COMPARISON: CT CT BRAIN NECK CTA from 03/25/2023 FINDINGS: Ventricles and Extra axial spaces: Normal in size and morphology for the patient's age. Hemorrhage: None. Cerebral parenchyma: The winchester-white matter differentiation is well maintained. No mass effect is identified. Midline shift: None. Brainstem/Cerebellum: Normal. Calvarium: Normal. Visualized Paranasal sinuses/Mastoids: There is mucosal thickening in the visualized paranasal sinuses. No air-fluid levels are seen. The mastoid air cells are clear. Soft Tissues: Unremarkable. IMPRESSION: No acute intracranial process. EXAM: CT CERVICAL SPINE WO CLINICAL HISTORY: Fall, head injury, Hx of CVA. TECHNIQUE: Imaging Protocol: Axial computed tomography images with coronal and sagittal reformatted images were created and reviewed COMPARISON: CT CT BRAIN NECK CTA from 03/25/2023 FINDINGS: Bones: No acute fracture or subluxation. Soft Tissues: Unremarkable. Lung Apices: Clear. IMPRESSION: No acute fracture or subluxation in the cervical spine. Labs 03/13/24 17:50 03/13/24 17:50 Labs: Laboratory Results - last 24 hr 03/13/24 03/13/24 03/13/24 17:50 19:34 20:08 WBC 9.67 RBC 5.08 Hgb 14.8 Hct 42.2 MCV 83 MCH 29.1 MCHC 35.1 RDW 12.7 Plt Count 194 MPV 9.8 Immature Gran % 0.4 Neutrophils % 68.6 Lymphocytes % 20.9 Monocytes % 7.5 Eosinophils % 2.1 Basophils % 0.5 Nucleated RBC % 0.0 Absolute Neutrophils 6.63 Absolute Lymphocytes 2.02 Absolute Monocytes 0.73 Absolute Eosinophils 0.20 Absolute Basophils 0.05 Sodium 140 Potassium 3.6 Chloride 102 Carbon Dioxide 29.6 Anion Gap 8.4 BUN 15 Creatinine 1.2 Est GFR (CKD-EPI 2020) 77.43 Glucose 132 H Calcium 9.1 Magnesium 2.1 Total Bilirubin 1.12 H AST 39 H ALT 104 H Alkaline Phosphatase 121 H Troponin I < 50 < 50 Total Protein 8.0 Albumin 4.1 Urine Color Yellow Urine Clarity Clear Urine pH 5.5 Ur Specific [place] 1.010 Urine Protein Negative Urine Ketones Negative Urine Blood Small H Urine Nitrite Negative Urine Bilirubin Negative Urine Urobilinogen 0.2 Ur Leukocyte Esterase Negative Urine RBC 3-5 H Urine WBC 0-2 Ur Epithelial Cells Rare Urine Crystals Negative Urine Bacteria Negative Urine Casts Negative Urine Mucus Negative Ur Culture Indicated? No Urine Glucose Negative Last Vital Signs Pulse 76 03/13/24 20:46 Resp 22 03/13/24 20:50 BP 158/69 H 03/13/24 20:46 Pulse Ox 94 03/13/24 20:50 Time Spent Time spent with Patient: >75 minutes Time was spent: preparing to see the patient(eg.review tests), obtaining and/or reviewing separately [facility], ordering medications,tests, procedures, referring, communicating with other health pet caretaker, indepentently interpreting results, counseling the patient and care coordination
[2024-03-13 21:22] LABS: COVID-19 PCR Negative (Negative); Influenza A PCR Negative (Negative); Influenza B PCR Negative (Negative); RSV PCR Negative (Negative)
[2024-03-13 21:24] LABS: Source Nasopharynx
--- NOTE | 2024-03-13 23:13 | W.PC.ACHO ---
Registration Status: Primary Language: Preferred Language: ED Information & Data Chief Complaint CVA/TIA 03/13/24 18:11 Chief Complaint CVA/TIA 03/13/24 17:28 Triage Note patient had a cough, turned 03/13/24 17:22 red, passed out fell backwards over banister striking back of head, no loss of bowel or bladder. had stroke march 25. has a headache. Episode [id number] similiar march 06, 2024 Most Recent Vital Signs Temperature 36.6 C 03/13/24 22:39 Pulse 71 03/13/24 22:39 Pulse Rhythm Regular 03/13/24 22:05 Pulse 78 03/13/24 20:50 Respiratory Rate 18 03/13/24 22:39 Respiratory Effort Normal, Short of Breath 03/13/24 22:05 Respiratory Depth Normal 03/13/24 22:05 Respiratory Pattern Normal 03/13/24 22:05 Blood Pressure 139/77 03/13/24 22:39 Blood Pressure Mean 94 03/13/24 20:46 Blood Pressure Position Sitting 03/13/24 17:22 Pulse Oximetry 97 03/13/24 22:39 Oxygen Delivery Method Room Air 03/13/24 22:39 Oxygen Flow Rate 0 03/13/24 22:39 Pain Level 1 03/13/24 22:05 Allergies No Known Allergies Allergy (Unverified 03/13/24 17:33) Active Medications Generic Name Dose Route Start Last Admin Trade Name Freq PRN Reason Stop Dose Admin Iohexol 100 ml 03/13/24 19:00 03/13/24 18:49 Omnipaque 350 Mg/Ml 100 Ml Btl IJ 04/12/24 23:59 100 ml DIRECTED APURVA Administration Sodium Chloride 0 ml 03/13/24 17:20 03/13/24 18:48 Normal Saline Flush 10 Ml Syr IVP 10 ml PRN PRN Administration Sodium Chloride 0 ml 03/13/24 20:00 03/13/24 22:32 Normal Saline Flush 10 Ml Syr IVP Not Given BID APURVA Sodium Chloride 50 ml 03/13/24 19:00 03/13/24 18:48 Normal Saline - Diluent 50 Ml Vial IJ 50 ml .FOR DI USE APURVA Administration IV IV Catheter Type [Right Saline Lock Antecubital] IV Catheter Gauge [Right 20 Antecubital] Diet Orders Category Date Time Status Heart Healthy Eating [DIET] Nutrition 03/14/24 Breakfast Ordered Diagnostics 03/13/24 03/13/24 03/13/24 Range/Units 21:28 20:43 20:08 WBC (4.4-10.8) 10^3/uL RBC (4.36-5.78) 10^6/uL Hgb (13.5-17.5) g/dL Hct (40.0-50.0) % MCV (80-95) fL MCH (27.0-33.0) pg MCHC (32.0-36.0) % RDW (11.8-14.1) % Plt Count (130-400) 10^3/uL MPV (8.0-11.0) fL Immature Gran % % Neutrophils % % Lymphocytes % % Monocytes % % Eosinophils % % Basophils % % Nucleated RBC % (0.0-0.3) % Absolute Neutrophils (1.2-6.7) 10^3/uL Absolute Lymphocytes (1.2-3.4) 10^3/uL Absolute Monocytes (0.1-0.8) 10^3/uL Absolute Eosinophils (0.0-0.7) 10^3/uL Absolute Basophils (0.0-0.2) 10^3/uL Sodium (136-145) mmol/L Potassium (3.5-5.1) mmol/L Chloride (98-107) mmol/L Carbon Dioxide (21.0-32.0) mmol/L Anion Gap (3-11) mmol/L BUN (7-18) mg/dL Creatinine (0.70-1.30) mg/dL Est GFR (CKD-EPI 2020) (mL/min/1.73m2) Glucose (74-106) mg/dL Calcium (8.5-10.1) mg/dL Magnesium (1.8-2.4) mg/dL Total Bilirubin (0.2-1.0) mg/dL AST (15-37) U/L ALT (16-63) U/L Alkaline Phosphatase (46-116) U/L Troponin I < 50 (< or =60) ng/L Total Protein (6.4-8.2) g/dL Albumin (3.4-5.0) g/dL TSH Pending Urine Color (Yellow) Urine Clarity (Clear) Urine pH (5-8) Ur Specific [place] (1.005-1.025) Urine Protein (Neg-Trace) mg/dL Urine Ketones (Negative) mg/dL Urine Blood (Negative) Urine Nitrite (Negative) Urine Bilirubin (Negative) Urine Urobilinogen (Up to 0.2) mg/dL Ur Leukocyte Esterase (Negative) Urine RBC (0-2) HPF Urine WBC (0-5) HPF Ur Epithelial Cells (Negative) HPF Urine Crystals (Negative) HPF Urine Bacteria (Negative) HPF Urine Casts (Negative) LPF Urine Mucus (Negative) Ur Culture Indicated? Urine Glucose (Negative) mg/dL COVID-19 Source Nasopharynx SARS-CoV-2 (PCR) Negative (Negative) Influenza Type A (PCR) Negative (Negative) Influenza Type B (PCR) Negative (Negative) RSV (PCR) Negative (Negative) 03/13/24 03/13/24 Range/Units 19:34 17:50 WBC 9.67 (4.4-10.8) 10^3/uL RBC 5.08 (4.36-5.78) 10^6/uL Hgb 14.8 (13.5-17.5) g/dL Hct 42.2 (40.0-50.0) % MCV 83 (80-95) fL MCH 29.1 (27.0-33.0) pg MCHC 35.1 (32.0-36.0) % RDW 12.7 (11.8-14.1) % Plt Count 194 (130-400) 10^3/uL MPV 9.8 (8.0-11.0) fL Immature Gran % 0.4 % Neutrophils % 68.6 % Lymphocytes % 20.9 % Monocytes % 7.5 % Eosinophils % 2.1 % Basophils % 0.5 % Nucleated RBC % 0.0 (0.0-0.3) % Absolute Neutrophils 6.63 (1.2-6.7) 10^3/uL Absolute Lymphocytes 2.02 (1.2-3.4) 10^3/uL Absolute Monocytes 0.73 (0.1-0.8) 10^3/uL Absolute Eosinophils 0.20 (0.0-0.7) 10^3/uL Absolute Basophils 0.05 (0.0-0.2) 10^3/uL Sodium 140 (136-145) mmol/L Potassium 3.6 (3.5-5.1) mmol/L Chloride 102 (98-107) mmol/L Carbon Dioxide 29.6 (21.0-32.0) mmol/L Anion Gap 8.4 (3-11) mmol/L BUN 15 (7-18) mg/dL Creatinine 1.2 (0.70-1.30) mg/dL Est GFR (CKD-EPI 2020) 77.43 (mL/min/1.73m2) Glucose 132 H (74-106) mg/dL Calcium 9.1 (8.5-10.1) mg/dL Magnesium 2.1 (1.8-2.4) mg/dL Total Bilirubin 1.12 H (0.2-1.0) mg/dL AST 39 H (15-37) U/L ALT 104 H (16-63) U/L Alkaline Phosphatase 121 H (46-116) U/L Troponin I < 50 (< or =60) ng/L Total Protein 8.0 (6.4-8.2) g/dL Albumin 4.1 (3.4-5.0) g/dL TSH Urine Color Yellow (Yellow) Urine Clarity Clear (Clear) Urine pH 5.5 (5-8) Ur Specific [place] 1.010 (1.005-1.025) Urine Protein Negative (Neg-Trace) mg/dL Urine Ketones Negative (Negative) mg/dL Urine Blood Small H (Negative) Urine Nitrite Negative (Negative) Urine Bilirubin Negative (Negative) Urine Urobilinogen 0.2 (Up to 0.2) mg/dL Ur Leukocyte Esterase Negative (Negative) Urine RBC 3-5 H (0-2) HPF Urine WBC 0-2 (0-5) HPF Ur Epithelial Cells Rare (Negative) HPF Urine Crystals Negative (Negative) HPF Urine Bacteria Negative (Negative) HPF Urine Casts Negative (Negative) LPF Urine Mucus Negative (Negative) Ur Culture Indicated? No Urine Glucose Negative (Negative) mg/dL COVID-19 Source SARS-CoV-2 (PCR) (Negative) Influenza Type A (PCR) (Negative) Influenza Type B (PCR) (Negative) RSV (PCR) (Negative) [id number] Documentation Fingerstick Glucose Start: 03/13/24 17:20 Freq: .Stat Status: Active Protocol: Activity Type Activity Date Activity User E-sign Co-sign Detail Recorded Client Recorded Date Recorded By Document 03/13/24 17:24 EMERITA DAJANAKON(3) [id number] 03/13/24 17:24 BKG DAEMON(4) Intake and Output - 24 Hour Total 03/13/24 17:13 thru 03/13/24 22:05 Intake Total 1000 Balance 1000 Weight 120.656 kg Intake: IV 1000 Other: Urine Appearance Clear Falls Risk Assessment History of Falls Admit Due to Fall 03/13/24 22:05 Contributing Factors Impairments 03/13/24 22:05 Ambulatory Aids Independent 03/13/24 22:05 Tubes/Lines W/no contributing factors 03/13/24 22:05 Gait Evaluation No gait disturbance 03/13/24 22:05 Cognition No cognitive impairment 03/13/24 18:11 Fall Total Score 38 03/13/24 22:05 Level of Risk Moderate Risk 03/13/24 22:05 Problems (Last Reviewed 03/13/24 @ 21:16 by Tam Granados) Viral URI with cough (Acute) Elevated liver function tests (Acute) Hyperlipemia, mixed (Chronic) HTN (hypertension) (Chronic) Syncope and collapse (Acute) v v v v v v v v v Sending and/or Receiving Nurses: Please use comment section below to note any information pertinent to the patient hand-off not included above. Information / Comments: Pt had a coughing spell at home, lost consciousness, and fell backwards over a banister. Upon arrival he was c/o chest and back pain, for which he received ibuprofen. Pt came in last year with a hemorrhagic stroke, for which he was sent to [facility]. He has residual vision problems from this; trouble focusing. He is A&Ox4, completely independent and here for obs overnight. MRI, ECHO, and US scheduled for tomorrow morning. VSS: HR:67, BP: 156/69, R: 23, SPO2: 95% on RA and afebrile. CT and Trop neg in the ED. Report received from: Junior Zaragoza, PM @ [id number]
[2024-03-14 03:17] VITALS: BP 128/76; PULSE 62; RESP 16; TEMP 36.5; O2SAT 95
[2024-03-14 06:34] LABS: HCT 40.8 % (40.0-50.0); HGB 14.1 g/dL (13.5-17.5); MCH 28.7 pg (27.0-33.0); MCHC 34.6 % (32.0-36.0); MCV 83 fL (80-95); MPV 9.9 fL (8.0-11.0); Platelet Count 181 10^3/uL (130-400); RBC 4.92 10^6/uL (4.36-5.78); RDW 12.9 % (11.8-14.1); RDW-SD 38.5 fL; WBC 7.23 10^3/uL (4.4-10.8)
[2024-03-14 06:46] LABS: INR 1.1 (0.9-1.1); Prothrombin Time 11.1 sec (9.1-11.1)
[2024-03-14 06:47] VITALS: BP 119/81; PULSE 60; RESP 18; TEMP 36.5; O2SAT 96
[2024-03-14 06:53] LABS: ALT 90 U/L (16-63); AST 26 U/L (15-37); Albumin 3.6 g/dL (3.4-5.0); Alkaline Phosphatase 106 U/L (46-116); Anion Gap 9.7 mmol/L (3-11); BUN 17 mg/dL (7-18); Bilirubin, Total 1.08 mg/dL (0.2-1.0); CO2 27.3 mmol/L (21.0-32.0); Calcium 8.9 mg/dL (8.5-10.1); Chloride 107 mmol/L (98-107); Estimated GFR 96.37 (mL/min/1.73m2); Glucose 100 mg/dL (74-106); Potassium 3.9 mmol/L (3.5-5.1); Sodium 144 mmol/L (136-145)
[2024-03-14 07:01] LABS: TSH (W/Ref FT4) 1.68 uIU/mL (0.36-3.74)
--- NOTE | 2024-03-14 08:00 | DI.US_ITS ---
APPROVED REPORT EXAM: Comprehensive 2D, Doppler, and color-flow Echocardiogram Patient Location: In-Patient Room/Bed: [facility] Rug Cutter: Camilla Del Valle RDCS (AE) Indications: Syncope with previous intracranial hemorrhage Echo Enhancing Agent Indication: Rule out Shunt Agent(s) / Amount(s) Used: Agitated Saline 20.0 cc Comments: Contrast study was performed with 2 IV injections of 10ccs of agitated normal saline, at re st and with cough. Positive contrast study for right to left shunt flow. Other Information Study Quality: Adequate. Technically limited study due to body habitus subcostal imaging. Conclusion Normal left ventricular wall thickness and chamber size. Ejection fraction is 60 to 65%. Wall motio n is normal Normal right ventricular size and function Both atria are normal in size There is no structural or hemodynamically significant valvular disease Wall motion Left Ventricle The left ventricle is normal size. The left ventricular systolic function is normal. The left ventric ular ejection fraction is within the normal range. There is normal left ventricular wall thickness. T here is normal LV segmental wall motion. There is no ventricular septal defect visualized. LVEF is 60 -65%. Right Ventricle The right ventricle is normal size. The right ventricular systolic function is normal. Atria The left atrium size is normal. The right atrium size is normal. Saline bubble contrast intravenous injection demonstrates PFO. Aortic Valve The aortic valve is normal in structure. Aortic valve is trileaflet. There is no aortic valvular sten osis. No aortic regurgitation is present. Mitral Valve The mitral valve is normal in structure. No evidence of mitral valve stenosis. Trace mitral regurgita tion. Tricuspid Valve The tricuspid valve is normal in structure. There is no tricuspid valve stenosis. Trace tricuspid reg urgitation. Unable to assess PA pressure. Pulmonic Valve The pulmonary valve is normal in structure. There is no pulmonic valvular stenosis. There is no pulmo prince valvular regurgitation. Great Vessels The aortic root is normal in size. The ascending aorta is mildly dilated. Aortic arch is normal in ca liber. The IVC was not visualized. Technically limited subcostal imaging Pericardium Technically limited subcostal imaging. There is no pericardial effusion. 2D Dimensions IVSD d PLAX 0.97 cm M: 0.6-1.2 Ao Root d 3.11 cm M: 3.1 - 3.7 LVPW d PLAX 0.98 cm M: 0.6 - 1.2 Ao Asc Diam d 3.60 cm M: 2.6 - 3.4 LVID d PLAX 5.27 cm M: 4.2 - 5.8 LVDs 3.32 cm M: 2.5 - 4.0 LV EF Teichholz 66.5 % FS 37.03 % LV EDV (Teich) 133.6 mL LV ESV (Teich) 44.7 mL M-Mode TAPSE 2.97 cm (M/F) >1.7 Auto EF LV EDV A4C 170.7 mL LV EDV A2C 134.8 mL LV EDV BP 152.8 mL LV ESV A4C 69.0 mL LV ESV A2C 47.0 mL LV ESV BP 57.3 mL LVEF(%) A4C 59.6 % LVEF(%) A2C 65.1 % LVEF(%) BP 62.5 % LV SV A4C 101.7 ml LV SV A2C 87.8 ml LV SV BP 95.5 ml LV CO A4C 5.5 L/min LV CO A2C 4.3 L/min LV CO BP 4.9 L/min HR A4C 54.22 BPM HR A2C 49.25 BPM LV EDV Index (BP) LA Volume LA Length A4C 5.0 cm LA Length A2C 6.1 cm LA Area A4C s 15.47 cm2 LA Area A2C s 22.75 cm2 LA Vol A4C A-L 40.80 mL LA Vol A2C A-L 71.88 mL LA Vol Biplane A-L 60.0 mL LA Vol/BSA A4C A-L LA Vol/BSA A2C A-L LA Vol/BSA BP A-L 25.0 mL/m2 LA Vol A4C MOD 35.2 mL LA Vol A2C MOD 68.6 mL LA Vol BP MOD 54.2 mL RA Volume RA Area A4C 11.8 cm2 RA ESV A4C (A-L) 26.7mL RA Vol/BSA A4C A-L RA Length A4C 4.4 cm RA ESV A4C (MOD) 24.7mL LV Diastology MV E' medial 0.087 (>0.07 m/s) MV E Vmax 0.98 (0.4-1.3 m/s) MV E/E' MED 11.31 (<14) MV A Vmax 0.65 (0.4-1.3 m/s) MV E' lateral 0.108 (>0.1 m/s) E/A Ratio 1.5 MV E/E' LAT 9.07 (<14) MV E' Average 0.097 m/s MV E/E'(average) 10.07 Aortic Valve AoV Vmax 1.47 m/s LVOT Vmax 1.25 m/s AoV Peak Grad 8.6 mmHg LVOT Peak Grad 6.2 mmHg AoV Area (Vmax) 2.65 cm2 LVOT VTI 0.280 m AoV VTI 0.340 m LVOT Mean Grad 3.4 mmHg AoV Mean Mariano. 0.99 m/s LVOT SV 87.21 mL AoV Mean Grad 4.6 mmHg LVOT Diam s 1.95 cm AoV Area (VTI) 2.56 cm2 Velocity Ratio 0.85 Mitral Valve MV DT 217 (160-240 msec) MV Vmax TIPS 0.85 m/s MV Mean Grad 1.0 (<2mmHg) MV VTI 0.317 m Pulmonary Valve PV Vmax 1.06 (0.5-1.5 m/s) RVOT Vmax 0.89 m/s PV Peak Grad 4.5 mmHg RVOT Peak Gr. 3.2 mmHg PV Mean Mariano 0.75 m/s RVOT VTI 0.210 m PV Mean Grad 2.6 mmHg RVOT Mean Gr. 1.8 mmHg Tricuspid Valve TV S' 0.16 m/s
--- NOTE | 2024-03-14 08:00 | DI.US_ITS ---
Exam(s) US ABDOMEN LIMITED EXAM: US ABDOMEN LIMITED CLINICAL HISTORY: Elevated liver function test with syncope TECHNIQUE: Ultrasound abdomen performed using standard protocol. COMPARISON: CT CT CHEST PE CTA from 03/13/2024 FINDINGS: LIVER: Liver measured at 15.7 cm in length . markedly increasedechogenicity and decreased through t ransmission, consistent with severe hepatic steatosis. Posterior portions of the liver are not visua lized. No focal liver lesions are seen.. GALLBLADDER: No evidence of cholelithiasis. No evidence of wall thickening. No pericholecystic fluid identified. DAVID'S SIGN: Negative. BILIARY SYSTEM: No intrahepatic or extrahepatic biliary ductal dilation. RIGHT KIDNEY: Normal size. No evidence of renal calculi. No evidence of hydronephrosis. No suspicious renal mass. No cyst identified. PANCREAS: Normal where visualized. ABDOMINAL AORTA AND IVC: Visualized portions normal caliber. ASCITES: None seen. IMPRESSION: Severe hepatic steatosis. Gallbladder appears normal. DATA REPOSITORY:
--- NOTE | 2024-03-14 08:00 | DI.MRI_ITS ---
Exam(s) MR BRAIN WO EXAM: MR BRAIN WO CLINICAL HISTORY: Syncope with previous intracranial hemorrhage TECHNIQUE: Multiplanar multisequence MRI of the brain was performed. COMPARISON: CT CT BRAIN NECK CTA from 03/25/[address] HEAD - STROKE PROTOCOL from 03/13/2024 FINDINGS: VENTRICLES AND EXTRA AXIAL SPACES: Normal in size and morphology for the patient's age. Cisterna mag na again noted. MIDLINE SHIFT: None. CEREBRAL PARENCHYMA: No focus of restricted diffusion to suggest acute infarct. No space-occupying le jenny identified. No significant microvascular changes.. HEMORRHAGE: No evidence of acute hemorrhage. Focus of hemosiderin seen on susceptibility weighted im ages in the right side of the upper mid brain related to the prior hemorrhage in March 2023. BRAINSTEM/CEREBELLUM: Normal. VISUALIZED PARANASAL SINUSES/MASTOIDS:Mucous retention within right maxillary sinus. Mucosal thicken ing of the ethmoid and sphenoid sinuses. Mild mucosal thickening left maxillary sinus. Vasculature: Normal flow void. PITUITARY GLAND: Unremarkable. ORBITS: Unremarkable. IMPRESSION: No acute abnormality. Single focus of hemosiderin deposition seen in the right upper midbrain relate d to previous hemorrhage in 2022. DATA REPOSITORY:
--- NOTE | 2024-03-14 08:10 | PDOC.CMIN ---
Date of service: 03/14/24 Time of Service: 08:11 Care Management Initial Assmt Initial Assessment Reason for Hospitalization: Syncope Functional Status/Living Situation Patient Presentation: Sal was sitting up in bed visiting with his Kayley when CM met with him. He was very pleasant and engaged easily with CM. Sal stated that this is the second episode of syncope in the past 7 days, always triggered by a severe coughing spell. It happened one other time but he did not quite pass out that time. The provider is contacting Sal's provider (neurology) [place] [facility] [place] regarding recent events. Sal is also undergoing a workup to exclude a cardiac component. He is independent at baseline and does not receive any community services. During the admission assessment it was noted that Sal does not have advanced directives. At his request, CM provided Sal and Kayley with [place] AD forms and will assist with their completion as needed. [facility] Resides with: Spouse Significant Other/Family: Local Natural Supports: family - and 3 children Employment Status: Employed ([employer]) Instrumental Activities of Daily Living (ADLs): Independent Medications Medication Management: No Issues/Barriers identified Physical Functioning/Mobility Assistive Device: none Advance Directives Advance Directives: Do you have an Advance Directive: N 04/09/23 08:39 AD On File at [facility]: N 04/09/23 08:39 Date Asked 03/13/24 03/13/24 17:16 AD Date Reviewed COLST On File at [facility] COLST Date Scanned Code Status Resuscitation Status Full Code Portal Pt does not currently have a portal and education provided: No Insurance Coverage/Financial Issues ACO Member: No Care Team Visit Care Team Role Provider Type GOPAL TORRES NP Primary Care Provider [facility] STAFF PHYSICIAN Kely Garcia NP Emergency Provider NURSE PRACTITIONER Tam Granados Admit Provider NON-[facility] STAFF PHYSICIAN Attending Provider Discharge Potential Discharge Needs: PCP F/U Appt and Other (Follow up with neurologist at [facility] [place] Anticipated Barriers to Discharge: None Identified Patient/Family Education Needs: Review discharge instructions, discuss Ask Me Three Transportation: Private vehicle Plan: Anticipate Sal will be discharged home with no new services when medically cleared. He will follow up with his PCP and plan of care and transport with a friend. CM will follow and continue to assess for discharge needs. PFSH All Active Problems (Updated 03/13/24 @ 22:02 by EMERITA PAUL) Viral URI with cough (Acute) Elevated liver function tests (Acute) Hyperlipemia, mixed (Chronic) HTN (hypertension) (Chronic) Syncope and collapse (Acute) Social History Smoking/Tobacco Use Status: Never Smoking risk assessment performed?: Yes Alcohol Intake: current Alcohol Intake frequency: 0-2 drinks per day Substance use type: does not use Housing: house Do you feel safe at home: Yes Do you feel safe in your relationship?: Yes SDOH(Care Management) Screening Will the Patient Participate in the Screening?: Yes Do you worry about having a steady place to live?: no Problems where you live: no known problems In the past 12 months, have you had to go without electric, gas, oil or water in your home?: no Have you or anyone in your house had to go without enough food to eat?: no Has lack of transportation kept you from medical appointments or from doing things needed for daily living?: no Has anyone in your support network made you feel unsafe for any reason?: no
--- NOTE | 2024-03-14 09:05 | W.PM.PROGNOT ---
Date of Service Date of service: 03/14/24 Time of Service: 09:09 Assessment and Plan Assessment and plan (1) Syncope and collapse: Start date: 03/13/24 Status: Acute Assessment and plan: This is a 43-year-old gentleman who had an intracranial bleed in his mid brain last March 2023 without ongoing sequela see [place] [facility] [place] no sequela from his intracranial bleed Seen in [facility] :On 02/25 had Rx for proair inhaler, benzonatate prn and prednisone 40 mg daily x 5 days Ongoing symptoms: questioning bronchitis recently had onset of coughing paroxysms with wheezing in the past without a history of asthma where he would not feel to catch his breath and turned red. syncopal episode which was brief and without injury March 06, 2024 while he was sitting and he did not seek medical care at that time. another episode of coughing paroxysms, turning red and not being able to catch his breath while climbing his stairs with syncopal episode and falling backwards over the banister 6 foot onto the floor. CT and MRI of the head was negative. ACS workup negative Echocardiogram : Positive for right to left shunt -Cardiology consult [place] [place] Pulmonology referral for vasovagal, cough syncope VS reactive airway desease VS late onset asthma . (2) Viral URI with cough: Start date: 03/13/24 Status: Acute Assessment and plan: Symptomatic care with albuterol nebulizers as needed. Patient is not wheezing presently. He is not requiring oxygen. productive cough of yellowish sputum S/P discussion with Emil Tucker pulmonary PA: With suspicion of bronchitis advair and albuterol for a month then PCP f/u for pulmonary referral (3) Bronchitis: Status: Acute (4) Elevated liver function tests: Start date: 03/13/24 Status: Acute Assessment and plan: Patient does have elevated liver function test and for completion ultrasound abdomen will be performed in the morning. He is not having any abdominal pain. He is not a drinker of alcohol. (5) HTN (hypertension): Status: Chronic Assessment and plan: Slightly elevated the patient will be continued on his usual outpatient medical therapy with follow-up. If the patient does have sleep apnea, this should be treated. Qualifiers: Hypertension type: primary hypertension Qualified Code(s): I10 - Essential (primary) hypertension (6) Intracranial hemorrhage: Status: Resolved Assessment and plan: Patient has history of intracranial hemorrhage which he states was from hypertension and was not a CVA. [place] [facility] [place] and consult with neurology if needed. He is not acutely ill and neurology consultation from [facility] [place] was not obtained in the ED or upon admission with patient stable. (7) Hyperlipemia, mixed: Status: Chronic Assessment and plan: Continue statin therapy long-term and weight loss with diet would be helpful. If the patient does have sleep apnea, this should be treated. Subjective Subjective Patient reports: no new complaints, feels better, tolerating liquids well, tolerating a regular diet, voiding w/o difficulty and other (minimal coughing but laughter triggered coughing ); denies diarrhea, nausea, vomiting, shortness of breath or fever Exam Narrative Exam Narrative: Constitutional The patient is sitting in bed comfortable and cooperative during the interview, family at bedside The patient is without acute distress and has average body habitus/is obese/ is thin. HENMT: Head is atraumatic, normocephalic, no lymphadenopathy. Facial structures with normal appearance Eyes: Well aligned, intact ROM Neck: Normal ROM, no meningeal signs Neuro:alert and oriented to self, person, place time and situation. No neurological focal deficit, PERRLA Chest:Chest is symmetrical and normal appearance Resp: Normal respiratory pattern, speaks in full sentences, unlabored breathing, clear lung bilaterally Cardio: regular rhythm, S1, S2, no murmur, capillary refill<3 sec., bilateral radial and dorsalis pedis pulses are positive, palpable GI: Abdomen is not distended, soft and non tender, bowel sounds are present : Negative Costovertebral angle tenderness, no bladder distension Back/spine/Pelvis: No back tenderness, normal alignment Integumentary: No skin lesions or rash Extremities: strength 5/5 to bilateral lower and upper extremities Psych: RASS 0, congruent mood and normal affect. Objective Last Vital Signs Temp 36.5 C 03/14/24 06:47 Pulse 60 03/14/24 06:47 Resp 18 03/14/24 06:47 BP 119/81 03/14/24 06:47 Pulse Ox 96 03/14/24 06:47 Laboratory Results - last 24 hr 03/13/24 03/13/24 03/13/24 05:58 17:50 19:34 WBC 9.67 RBC 5.08 Hgb 14.8 Hct 42.2 MCV 83 MCH 29.1 MCHC 35.1 RDW 12.7 Plt Count 194 MPV 9.8 Immature Gran % 0.4 Neutrophils % 68.6 Lymphocytes % 20.9 Monocytes % 7.5 Eosinophils % 2.1 Basophils % 0.5 Nucleated RBC % 0.0 Absolute Neutrophils 6.63 Absolute Lymphocytes 2.02 Absolute Monocytes 0.73 Absolute Eosinophils 0.20 Absolute Basophils 0.05 PT INR Sodium 140 Potassium 3.6 Chloride 102 Carbon Dioxide 29.6 Anion Gap 8.4 BUN 15 Creatinine 1.2 Est GFR (CKD-EPI 2020) 77.43 Glucose 132 H Calcium 9.1 Magnesium 2.1 Total Bilirubin 1.12 H AST 39 H ALT 104 H Alkaline Phosphatase 121 H Troponin I < 50 Total Protein 8.0 Albumin 4.1 TSH 1.68 Urine Color Yellow Urine Clarity Clear Urine pH 5.5 Ur Specific [place] 1.010 Urine Protein Negative Urine Ketones Negative Urine Blood Small H Urine Nitrite Negative Urine Bilirubin Negative Urine Urobilinogen 0.2 Ur Leukocyte Esterase Negative Urine RBC 3-5 H Urine WBC 0-2 Ur Epithelial Cells Rare Urine Crystals Negative Urine Bacteria Negative Urine Casts Negative Urine Mucus Negative Ur Culture Indicated? No Urine Glucose Negative COVID-19 Source SARS-CoV-2 (PCR) Influenza Type A (PCR) Influenza Type B (PCR) RSV (PCR) 03/13/24 03/13/24 03/14/24 20:08 20:43 05:58 WBC 7.23 RBC 4.92 Hgb 14.1 Hct 40.8 MCV 83 MCH 28.7 MCHC 34.6 RDW 12.9 Plt Count 181 MPV 9.9 Immature Gran % Neutrophils % Lymphocytes % Monocytes % Eosinophils % Basophils % Nucleated RBC % Absolute Neutrophils Absolute Lymphocytes Absolute Monocytes Absolute Eosinophils Absolute Basophils PT 11.1 INR 1.1 Sodium 144 Potassium 3.9 Chloride 107 Carbon Dioxide 27.3 Anion Gap 9.7 BUN 17 Creatinine 1.0 Est GFR (CKD-EPI 2020) 96.37 Glucose 100 Calcium 8.9 Magnesium 2.0 Total Bilirubin 1.08 H AST 26 ALT 90 H Alkaline Phosphatase 106 Troponin I < 50 Total Protein 7.0 Albumin 3.6 TSH Urine Color Urine Clarity Urine pH Ur Specific [place] Urine Protein Urine Ketones Urine Blood Urine Nitrite Urine Bilirubin Urine Urobilinogen Ur Leukocyte Esterase Urine RBC Urine WBC Ur Epithelial Cells Urine Crystals Urine Bacteria Urine Casts Urine Mucus Ur Culture Indicated? Urine Glucose COVID-19 Source Nasopharynx SARS-CoV-2 (PCR) Negative Influenza Type A (PCR) Negative Influenza Type B (PCR) Negative RSV (PCR) Negative
[2024-03-14] MEDS: Atorvastatin 40 MG TAB PO (09:16)
[2024-03-14] MEDS: Omeprazole 20 MG CAPCR PO (09:17)
[2024-03-14] MEDS: Propranolol 80 MG CAPCR PO (09:17)
[2024-03-14] MEDS: amLODIPine 5 MG TAB PO (09:17)
[2024-03-14] MEDS: Valsartan 80 MG TAB 320 MG PO (09:19)
[2024-03-14] MEDS: Normal Saline Flush 10 ML SYR IVP (09:19)
[2024-03-14 11:03] VITALS: BP 133/76; PULSE 75; RESP 16; TEMP 36.6; O2SAT 97
[2024-03-14] MEDS: Budesonide/Formoterol 160/4.5 6 GM 60 PUFF INH IH (14:15)
[2024-03-14 14:40] VITALS: PULSE 67; RESP 18; TEMP 36.3; O2SAT 94
--- NOTE | 2024-03-14 14:45 | W.PM.DS.N ---
Date of service: 03/14/24 Time of Service: 14:45 DS: Diagnosis Discharge Diagnosis (1) Syncope and collapse: Status: Acute (2) Viral URI with cough: Status: Acute (3) Bronchitis: Status: Acute (4) Elevated liver function tests: Status: Acute (5) HTN (hypertension): Status: Chronic (6) Intracranial hemorrhage: Status: Resolved (7) Hyperlipemia, mixed: Status: Chronic Discharge Plan Disposition Patient Disposition: Home Condition: Improving Discharge Details Reason For Visit: Cough Syncope, ICH Past, HTN, Hyperlipidemia Admit Date/Time: 03/13/24 21:23 Admit Provider: Tam Granados Attending Provider: Tam Granados Primary Care Provider: GOPAL TORRES [facility] Course Hospital Course: This 49 years old male patient with a past medical history of hypertension, intracranial hemorrhage in March 2023 with follow-up at [facility] neurology service, visiting [facility] for coughing for over a month in February 26, 2024 resulting in treatment proair inhaler, benzonatate prn and prednisone 40 mg daily x 5 days, presented on 03/13/2024 in the ED at [facility] for evaluation of syncopal episode. The patient mention falling backwards over a banister and striking the back of his head after a coughing episode during which it turned red. The patient mentioned that he had a generalized headache but was alert and oriented x 3 on arrival to the ED. At the time the patient denied neck pain, back pain or any other associated symptoms. The workup in the ED was significant for a negative head CT and C-spine, EKG was negative for ischemia, chest CT was negative for evidence of pulmonary embolism or any other acute abnormalities, abdominal ultrasound only showed severe hepatic steatosis with a normal gallbladder; posterior portion of the liver were not well visualized. This morning the patient completed an MRI which was negative for any acute findings. The echocardiogram ultrasound showed a right to left shunt flow with an LVEF of 60 to 65% without wall motion abnormalities. Cardiology was consulted and considered this as an incidental finding but there was no intervention recommended at this time. Upon discussion with cardiology, syncopal episode might have been caused by the cough and reassured him at minimizing the trigger. [facility] neurology was consulted. Recommendation from Dr. Wray were to complete a DELROY outpatient, and EEG outpatient; the provider will arrange for dose to be completed[facility] as the provider already knows about this patient history with missed appointment in September 2023 but seen in July 2023. Recommendation also made to complete a 30-day cardiac event monitor upon discharge, and to apply syncopal precautions in the patient daily activities. Discussed outpatient pulmonary medicine referral with the Teresa Tucker pulmonary PA with recommendation to refer to primary provider for referral as this patient has no diagnosticor workup for asthma, COPD or reactive airway disease. But since the symptoms with persistent cough and production of yellowish sputum are still current complaints during this admission we will treat the patient for bronchitis for a month with scheduled Advair and as needed albuterol. Patient counseled regarding rinsing with water and spitting after each use to prevent thrush development with Advair . Schedule Tessalon Perles ordered to assist in reducing coughing spells. The patient's PCP will need to consider further referral to pulmonology for further diagnostic testing such as PFTs or other tests that might be needed. The patient will need a follow-up appointment with his PCP within 7 days of discharge. The patient has a referral to [facility] neurology services. Other chronic conditions were manged as per home medicine regimen. Discussed with Dr. Toscano Home Meds and New Rx's Prescriptions: New budesonide-formoterol [Symbicort] 160-4.5 mcg/actuation Hfa Aerosol Inhaler 2 puff inhalation BID Qty: 10.2 0RF Rx Instructions: For one month of treatment albuterol sulfate [ProAir HFA] 90 mcg/actuation HFA aerosol inhaler 2 puff inhalation QID PRNQty: 6.7 0RF benzonatate 100 mg capsule 100 mg PO BID Qty: 60 0RF Continued atorvastatin 40 mg tablet 40 mg PO DAILY valsartan 320 mg tablet 320 mg PO DAILY omeprazole 20 mg capsule,delayed release(DR/EC) 20 mg PO DAILY propranolol 80 mg capsule,extended release 24 hr 80 mg PO DAILY amlodipine 5 mg tablet 5 mg PO DAILY Discharge Instructions Referrals: NEUROLOGY,[facility] [OTHER] - (Referral : spoke to Dr. Wray) GOPAL TORRES [employer] [Primary Care Provider] - (F/u with PCP within one week of discharge, please ) Activity:: Activity as Tolerated Equipment/Supplies:: No Equipment Needed Diet:: heart healthy Discharge Orders Other Ambulatory Orders: Cardiac Event Recorder (Routine) Timeframe: 20240314 Facility: [facility] - Location: Respiratory Therapy Ordered By: Tahira Valle DS: Summary Time Spent with Patient providing and/or coordinating discharge services: Greater than 30 minutes Status at Discharge Functional status at discharge: independent ambulation Overall status at discharge: patient is back to baseline Mental Status: mental status grossly normal Speech and Movement: speech and movement normal Mood: congruent mood Affect: normal affect Quality:SDOH Health Related Social Needs: No Data to Display Exam Narrative Exam Narrative: Constitutional The patient is sitting in bed comfortable and cooperative during the interview, family at bedside The patient is without acute distress HENMT: Head is atraumatic, normocephalic. Facial structures with normal appearance Eyes: Well aligned Neck: Normal ROM, no meningeal signs, no neck pain Neuro:alert and oriented to self, person, place time and situation. No neurological focal deficit, PERRLA Chest:Chest is symmetrical and normal appearance Resp: Normal respiratory pattern, unlabored breathing,scattered ronchi clearing with cough to upper chest otherwise clear lungs bilaterally Cardio: regular rhythm, S1, S2, no murmur, capillary refill<3 sec., positive pulses to all 4 extremities GI: Abdomen is not distended, soft and non tender, bowel sounds are present : Negative Costovertebral angle tenderness Back/spine/Pelvis: No back tenderness, normal alignment Integumentary: No skin lesions or rash Extremities: strength 5/5 to bilateral lower and upper extremities Psych: RASS 0, congruent mood and normal affect. Psych Mental Status: mental status grossly normal Speech and Movement: speech and movement normal Mood: congruent mood Affect: normal affect DS: Data Vitals/I&O Vitals and I&O: Vital Signs Temperature 36.6 C 03/14/24 11:03 Temperature Source Tympanic 03/14/24 11:03 Pulse 75 03/14/24 11:03 Pulse Rhythm Regular 03/14/24 10:25 Pulse 78 03/13/24 20:50 Respiratory Rate 16 03/14/24 11:03 Respiratory Effort Normal 03/14/24 10:25 Respiratory Depth Normal 03/14/24 10:25 Respiratory Pattern Normal 03/14/24 10:25 Blood Pressure 133/76 03/14/24 11:03 Blood Pressure Mean 94 03/13/24 20:46 Blood Pressure Position Sitting 03/13/24 17:22 Pulse Oximetry 97 03/14/24 11:03 Oxygen Delivery Method Room Air 03/14/24 11:03 Oxygen Flow Rate 0 03/14/24 11:03 Pain Level 0 03/14/24 11:03 Intake & Output 03/13/24 03/14/24 03/14/24 23:59 11:59 23:59 Intake Total 1000 / 1000 Balance 1000 / 1000 Weight 120.656 kg 121.5 kg Intake: IV 1000 / 1000 Other: Urine Appearance Clear Clear Comment voided in toilet Data Completed and Pending Labs on day of discharge: Labs from last 24 hours 03/14/24 03/13/24 03/13/24 05:58 20:43 20:08 WBC 7.23 RBC 4.92 Hgb 14.1 Hct 40.8 MCV 83 MCH 28.7 MCHC 34.6 RDW 12.9 Plt Count 181 MPV 9.9 Immature Gran % Neutrophils % Lymphocytes % Monocytes % Eosinophils % Basophils % Nucleated RBC % Absolute Neutrophils Absolute Lymphocytes Absolute Monocytes Absolute Eosinophils Absolute Basophils PT 11.1 INR 1.1 Sodium 144 Potassium 3.9 Chloride 107 Carbon Dioxide 27.3 Anion Gap 9.7 BUN 17 Creatinine 1.0 Est GFR (CKD-EPI 2020) 96.37 Glucose 100 Calcium 8.9 Magnesium 2.0 Total Bilirubin 1.08 H AST 26 ALT 90 H Alkaline Phosphatase 106 Troponin I < 50 Total Protein 7.0 Albumin 3.6 TSH Urine Color Urine Clarity Urine pH Ur Specific [place] Urine Protein Urine Ketones Urine Blood Urine Nitrite Urine Bilirubin Urine Urobilinogen Ur Leukocyte Esterase Urine RBC Urine WBC Ur Epithelial Cells Urine Crystals Urine Bacteria Urine Casts Urine Mucus Ur Culture Indicated? Urine Glucose COVID-19 Source Nasopharynx SARS-CoV-2 (PCR) Negative Influenza Type A (PCR) Negative Influenza Type B (PCR) Negative RSV (PCR) Negative 03/13/24 03/13/24 03/13/24 19:34 17:50 05:58 WBC 9.67 RBC 5.08 Hgb 14.8 Hct 42.2 MCV 83 MCH 29.1 MCHC 35.1 RDW 12.7 Plt Count 194 MPV 9.8 Immature Gran % 0.4 Neutrophils % 68.6 Lymphocytes % 20.9 Monocytes % 7.5 Eosinophils % 2.1 Basophils % 0.5 Nucleated RBC % 0.0 Absolute Neutrophils 6.63 Absolute Lymphocytes 2.02 Absolute Monocytes 0.73 Absolute Eosinophils 0.20 Absolute Basophils 0.05 PT INR Sodium 140 Potassium 3.6 Chloride 102 Carbon Dioxide 29.6 Anion Gap 8.4 BUN 15 Creatinine 1.2 Est GFR (CKD-EPI 2020) 77.43 Glucose 132 H Calcium 9.1 Magnesium 2.1 Total Bilirubin 1.12 H AST 39 H ALT 104 H Alkaline Phosphatase 121 H Troponin I < 50 Total Protein 8.0 Albumin 4.1 TSH 1.68 Urine Color Yellow Urine Clarity Clear Urine pH 5.5 Ur Specific [place] 1.010 Urine Protein Negative Urine Ketones Negative Urine Blood Small H Urine Nitrite Negative Urine Bilirubin Negative Urine Urobilinogen 0.2 Ur Leukocyte Esterase Negative Urine RBC 3-5 H Urine WBC 0-2 Ur Epithelial Cells Rare Urine Crystals Negative Urine Bacteria Negative Urine Casts Negative Urine Mucus Negative Ur Culture Indicated? No Urine Glucose Negative COVID-19 Source SARS-CoV-2 (PCR) Influenza Type A (PCR) Influenza Type B (PCR) RSV (PCR) PFSH All Active Problems (Updated 03/14/24 @ 12:32 by Tahira Valle APRN) Bronchitis (Acute) Viral URI with cough (Acute) Elevated liver function tests (Acute) Hyperlipemia, mixed (Chronic) HTN (hypertension) (Chronic) Syncope and collapse (Acute) Social History Smoking/Tobacco Use Status: Never Smoking risk assessment performed?: Yes Alcohol Intake: current Alcohol Intake frequency: 0-2 drinks per day Substance use type: does not use Housing: house Do you feel safe at home: Yes Do you feel safe in your relationship?: Yes Time Spent with Patient Time Spent with Patient: >85 minutes Time was spent: preparing to see the patient(eg.review tests), obtaining and/or reviewing separately otained hiistory, ordering medications,tests, procedures, referring, communicating with other health care management associate, indepentently interpreting results, counseling the patient, care coordination and other
--- NOTE | 2024-03-14 14:51 | CHAPLAIN ---
I had a brief visit with Pal and his , Kayley. I explained my role and offered support.
== END 2024-03-14 16:10 | disposition home or self-care (01) ==
LOC: ER 20:44 → MS 22:02
PROVIDERS: Admitting Provider Family Medicine; Emergency Provider Registered Nurse Emergency; PCP Nurse Practitioner Family; Visit Provider Family Medicine
DX: R55 Syncope and collapse (principal); J06.9 Acute upper respiratory infection, unspecified; I10 Essential (primary) hypertension; E78.2 Mixed hyperlipidemia; R06.83 Snoring; Z86.73 Personal history of transient ischemic attack (TIA), and cerebral infarction without residual deficits; Z79.899 Other long term (current) drug therapy; K76.0 Fatty (change of) liver, not elsewhere classified
CPT/HCPCS: 00123; 36415; 36416; 71275; 80053; 82962; 85027; 87637; 93005; 94640; 96360; 99285; 70450; 70551; 72125; 76705; 81003; 81015; 83735; 84443; 84484; 85025; 85610; 93010; 93306; 94664; 99223; 99239; G0378; J3490

== ENCOUNTER 2024-03-18 15:11 | Emergency (ER) | payer BC, SELFPAY ==
[2024-03-18] VITALS (88 sets, daily range): BP systolic 132–166; BP diastolic 63–94; PULSE 58–82; RESP 12–23; TEMP 36.8–37; O2SAT 88–99
--- NOTE | 2024-03-18 15:15 | RT.EKG_ITS ---
APPROVED REPORT Exam: Resting ECG Reason for Exam: seizure Patient Location: E HR:73 bpm ECG Measurements Heart Rate 73 AXIS CA 172 P 38 QRSd 96 QRS -43 QT 366 T 35 QTc 403 Conclusion Sinus rhythm at a rate of 73 without acute ischemic change with motion artifact change similar to manpreet or EKG on 03/13/24.
--- NOTE | 2024-03-18 15:45 | DI.RAD_ITS ---
Exam(s) XR CHEST 2V PA LATERAL EXAM: XR CHEST 2V PA LATERAL CLINICAL HISTORY: syncope/seizure, cough. TECHNIQUE: 2D digital imaging was performed. COMPARISON: CR,XR XR CHEST 1V IN DI DEPT from 03/25/2023 FINDINGS: 2 views: There has been interval placement of a right anterior chest wall nuclear monitoring technician. Heart size is normal. The mediastinum is not widened. Lungs are clear. No infiltrates nor pleural effusions. No pulmonary edema. No pneumothorax. IMPRESSION: No acute pulmonary findings. DATA REPOSITORY: RADIATION DOSE DELIVERED:
--- NOTE | 2024-03-18 15:48 | W.ED.GENAD ---
Discharge Plan Disposition Patient Disposition: Home Condition: Stable Discharge Details Clinical Impression: Altered mental status Primary Care Provider: GOPAL TORRES ED Provider: Radha Hou Home Meds and New Rx's Prescriptions: New levetiracetam [Keppra] 500 mg tablet 500 mg PO BID 30 Days Qty: 60 0RF No Action atorvastatin 40 mg tablet 40 mg PO DAILY valsartan 320 mg tablet 320 mg PO DAILY omeprazole 20 mg capsule,delayed release(DR/EC) 20 mg PO DAILY propranolol 80 mg capsule,extended release 24 hr 80 mg PO DAILY amlodipine 5 mg tablet 5 mg PO DAILY budesonide-formoterol [Symbicort] 160-4.5 mcg/actuation Hfa Aerosol Inhaler 2 puff inhalation BID Qty: 10.2 0RF Rx Instructions: For one month of treatment albuterol sulfate [ProAir HFA] 90 mcg/actuation HFA aerosol inhaler 2 puff inhalation QID PRNQty: 6.7 0RF benzonatate 100 mg capsule 100 mg PO BID Qty: 60 0RF pantoprazole 20 mg tablet,delayed release (DR/EC) 20 mg PO DAILY Patient Comments: TAKE ONE TABLET BY MOUTH EVERY DAY Discharge Instructions Instructions: Seizures, Adult ED Additional Instructions: Please follow-up with [facility] neurology. The providers that we had consulted with in the emergency department are Dr. Maradiaga and Dr. Haley. They should be contacting you soon regarding outpatient EEG study. In the meantime do not drive or operate heavy machinery. If you do get worse or develop any new or concerning symptoms please return to the emergency department immediately. HPI General Date/Time Provider Initiated Documentation: 03/18/24 15:20. HPI Narrative: The patient is a 43-year-old male with history of hemorrhagic stroke in February of last year, recent hospitalization for syncope and collapse returns to the emergency department for altered mental status. History is obtained from the patient and his . Reports that this is the third episode now in which the patient has all mental status, syncope/seizure and collapse. Reports the first 1 was 06 March. Reports the patient had a coughing fit and suddenly slumped over and was unconscious for a few minutes. Reports she had not witnessed any thrashing or seizure-like activity then. Reports the patient regained consciousness on his own. Reports the second episode was this past . Reports that he had a coughing fit and fell backward and was unconscious once more. Reports that this time he was brought to the emergency department and was hospitalized. Patient had a full workup and ultimately he was referred to [facility] for possible outpatient EEG. Reports that earlier today around 330 the patient was in the middle of a pulmonary function study. Reports that they ask him to breathe out and patient reports that he felt off like he had been in prior 2 episodes in which she lost consciousness. Reports the patient had another episode this time around but there was thrashing of his arms and legs then. Reports this also lasted just a few minutes and resolved on its own. Denies any stool or bladder incontinence today. Denies any head injury or trauma today. Patient's reports that this episode the patient was a little confused for few seconds and reports the patient is back to his baseline now. Reports that he was recently diagnosed by his PCP with a bronchial infection but otherwise denies any chest pain or shortness of breath. Denies fevers or chills. Denies abdominal pain, nausea or vomiting. Reports he has a mild headache since episode today. Denies numbness or tingling sensation. Related Data Home Medications ?Medication ?Instructions ?Recorded ?Confirmed amlodipine 5 mg tablet 5 mg PO DAILY 03/13/24 03/18/24 atorvastatin 40 mg tablet 40 mg PO DAILY 03/13/24 03/18/24 omeprazole 20 mg capsule,delayed 20 mg PO DAILY 03/13/24 03/18/24 release propranolol 80 mg capsule,24 80 mg PO DAILY 03/13/24 03/18/24 hr,extended release valsartan 320 mg tablet 320 mg PO DAILY 03/13/24 03/18/24 albuterol sulfate 90 mcg/actuation 2 puff inhalation QID PRN #6.7 03/14/24 03/18/24 aerosol inhaler (ProAir HFA) grams benzonatate 100 mg capsule 100 mg PO BID #60 caps 03/14/24 03/18/24 budesonide-formoterol HFA 160 2 puff inhalation BID #10.2 grams 03/14/24 03/18/24 mcg-4.5 mcg/actuation aerosol inhaler (Symbicort) levetiracetam 500 mg tablet 500 mg PO BID 30 days #60 tabs 03/18/24 (Keppra) pantoprazole 20 mg tablet,delayed 20 mg PO DAILY 03/18/24 03/18/24 release Previous Rx's ?Medication ?Instructions ?Recorded albuterol sulfate 90 mcg/actuation 2 puff inhalation QID PRN #6.7 03/14/24 aerosol inhaler (ProAir HFA) grams benzonatate 100 mg capsule 100 mg PO BID #60 caps 03/14/24 budesonide-formoterol HFA 160 2 puff inhalation BID #10.2 grams 03/14/24 mcg-4.5 mcg/actuation aerosol inhaler (Symbicort) levetiracetam 500 mg tablet 500 mg PO BID 30 days #60 tabs 03/18/24 (Keppra) Allergies Allergy/AdvReac Type Severity Reaction Status Date / Time No Known Allergies Allergy Unverified 03/13/24 17:33 General Stated Complaint: Seizure MARKO: 3 Review of Systems Narrative: Review of systems are negative except as mentioned. Exam Narrative Exam Narrative: The patient is in no acute distress. Pupils are round, equal and reactive. Neck is supple and without midline C-spine tenderness to palpation. No meningismus. Heart is regular in rate and rhythm. Lungs are clear to auscultation bilaterally. Abdomen is soft with normal bowel sounds and nontender to palpation throughout. Skin is warm and dry. Patient has equal radial pulses. Speech is clear. He has no facial asymmetry. Cranial nerves II to XII motor function are intact and equal. No pronator drift noted. Patient has equal strength and sensation to bilateral upper and lower extremities. NIH stroke scale score 0 at 1540. No tenderness is noted to palpation and range of motion testing to bilateral upper and lower extremities. Course Vital Signs Vital signs: Vital Signs Temperature 36.8 C 03/18/24 15:15 Pulse 73 03/18/24 15:15 Respiratory Rate 16 03/18/24 15:15 Blood Pressure 138/82 03/18/24 15:15 Pulse Oximetry 96 03/18/24 15:15 Temperature 36.8 C 03/18/24 15:15 Temperature Source Tympanic 03/18/24 15:15 Pulse 73 03/18/24 15:15 Respiratory Rate 16 03/18/24 15:15 Respiratory Effort Normal, Non-Labored 03/18/24 15:40 Respiratory Depth Normal 03/18/24 15:40 Blood Pressure 138/82 03/18/24 15:15 Blood Pressure Position Sitting 03/18/24 15:15 Pulse Oximetry 96 03/18/24 15:15 Oxygen Delivery Method Room Air 03/18/24 15:15 Oxygen Flow Rate 0 03/18/24 15:15 Pain Level 0 03/18/24 15:15 Medical Decision Making I reviewed the patient's recent hospitalization notes through [facility]. The patient was hospitalized on March 13 after his second syncope/altered mental status episode. Patient had inpatient MRI, implantable textiles sales representative placed and echocardiogram which were nondiagnostic. Ultimately the patient was referred to [facility] for outpatient EEG. The patient's reports that they did receive a call from [facility] asking for more information but there is no appointment set just yet. The patient's physical exam is benign without any focal deficit. Since the patient had recent hospitalization with CAT scans, MRI, blood work and echocardiogram I will hold off on repeat imaging study. EKG has been ordered and I am checking blood work. I did order a chest x-ray however. Once resulted I will consult with neurology at [facility]. EKG and chest x-ray done and they are unremarkable. Lactic acid is within normal limits. The rest of the patient's workup is benign apart from mildly increased renal function so I ordered normal saline for him. In the meantime I did consult with neurology in [facility]. Dr. Maradiaga, neurologist on-call at [facility] was able to evaluate the patient himself through teleneurology. Afterwards I was able to speak with him and recommended transfer to [facility] for further workup. He did not recommend starting the patient on seizure prophylaxis at this point. I do have a page out to the transfer line. Unfortunately [facility] did not have capacity for so I spoke with the neurologist on-call now, Dr. Haley. Thinks that the patient would be appropriate for close outpatient follow-up. She informs me that somebody in the clinic will reach out to the patient to get this procedure done but in the meantime recommended 1 g of IV Keppra and 500 mg of oral Keppra twice a day. I did update the patient regarding this new plan and he voiced understanding of it. He will get IV dose of Keppra now and a prescription for twice daily Keppra is to be sent to his preferred pharmacy. He is asked to follow-up with neurology and as to avoid operating heavy machinery in particular driving until cleared by neurology. Imaging Data Radiologic Study: Imaging: X-Ray Radiologist's impression: No acute pulmonary findings. ECG Data Attestation: I personally reviewed and interpreted this ECG (s) as follows: (Sinus rhythm at a rate of 72 without acute ischemic change with motion artifact change. I compared this to his EKG from March 13, 2024 and there has been no significant interval change.) Quality:SDOH Health Related Social Needs: No Data to Display [facility] All Active Problems (Updated 03/18/24 @ 18:34 by Radha Hou DO) Altered mental status (Acute) Bronchitis (Acute) Viral URI with cough (Acute) HTN (hypertension) (Chronic) Syncope and collapse (Acute) Medical History (Updated 03/18/24 @ 18:34 by Radha Hou DO) Elevated liver function tests Hyperlipemia, mixed Social History Smoking/Tobacco Use Status: Never Smoking risk assessment performed?: Yes Alcohol Intake: current Alcohol Intake frequency: 0-2 drinks per day Substance use type: does not use Housing: house Do you feel safe at home: Yes Do you feel safe in your relationship?: Yes
[2024-03-18 16:15] LABS: Abs Immature Grans 0.02 10^3/uL (0.0-0.06); Absolute Basophil Count 0.05 10^3/uL (0.0-0.2); Absolute Eosinophil Count 0.09 10^3/uL (0.0-0.7); Absolute Monocyte Count 0.85 10^3/uL (0.1-0.8); Absolute Neutrophil Count 4.86 10^3/uL (1.2-6.7); Basophils % 0.6 %; Eosinophils % 1.1 %; HCT 41.9 % (40.0-50.0); HGB 14.8 g/dL (13.5-17.5); Immature Grans % 0.3 %; Lymphocytes % 26.3 %; MCH 29.2 pg (27.0-33.0); MCHC 35.3 % (32.0-36.0); MCV 83 fL (80-95); MPV 9.8 fL (8.0-11.0); Monocytes % 10.7 %; Platelet Count 225 10^3/uL (130-400); RBC 5.06 10^6/uL (4.36-5.78); RDW 12.7 % (11.8-14.1); RDW-SD 37.9 fL; WBC 7.97 10^3/uL (4.4-10.8)
[2024-03-18 16:19] LABS: Lactate 0.8 mmol/L (0.6-1.4)
[2024-03-18 16:43] LABS: ALT 80 U/L (16-63); AST 19 U/L (15-37); Albumin 4.2 g/dL (3.4-5.0); Alkaline Phosphatase 118 U/L (46-116); Anion Gap 7.7 mmol/L (3-11); BUN 19 mg/dL (7-18); Bilirubin, Total 1.33 mg/dL (0.2-1.0); CO2 28.3 mmol/L (21.0-32.0); CREATININE 1.1 mg/dL (0.70-1.30); Calcium 9.1 mg/dL (8.5-10.1); Chloride 102 mmol/L (98-107); Estimated GFR 85.95 (mL/min/1.73m2); Glucose 101 mg/dL (74-106); Potassium 3.8 mmol/L (3.5-5.1); Sodium 138 mmol/L (136-145)
[2024-03-18] MEDS: Normal Saline 1,000 ML 1000 ML IV (17:37)
[2024-03-18] MEDS: levETIRAcetam 1,000 MG in Normal Saline 100 ML 400 MG IVPB (20:48)
== END 2024-03-18 21:33 | disposition home or self-care (01) ==
PROVIDERS: Emergency Provider Emergency Medicine; PCP Nurse Practitioner Family
DX: R41.82 Altered mental status, unspecified (principal); R56.9 Unspecified convulsions; E78.5 Hyperlipidemia, unspecified; Z86.73 Personal history of transient ischemic attack (TIA), and cerebral infarction without residual deficits
CPT/HCPCS: 36415; 80053; 82962; 93005; 96361; 96365; 99285; 71046; 83605; 85025; 93010; 99284; J1953

== ENCOUNTER 2024-05-30 09:58 | Outpatient (REF) | payer BC, SELFPAY ==
[2024-05-30 16:33] LABS: ALT 55 U/L (16-63); AST 23 U/L (15-37); Alkaline Phosphatase 128 U/L (46-116); Anion Gap 8.5 mmol/L (3-11); BUN 18 mg/dL (7-18); Bilirubin, Total 1.12 mg/dL (0.2-1.0); CO2 25.5 mmol/L (21.0-32.0); Calculated LDL 71 mg/dL (<100); Chloride 105 mmol/L (98-107); Cholesterol 135 mg/dL (<200); Estimated GFR 95.77 (mL/min/1.73m2); Glucose 151 mg/dL (74-106); HDL Cholesterol 42 mg/dL (40-60); Potassium 4.1 mmol/L (3.5-5.1); Sodium 139 mmol/L (136-145); Total Protein 7.3 g/dL (6.4-8.2); Triglyceride 112 mg/dL (<150)
== END 2024-05-30 09:59 | disposition home or self-care (01) ==
LOC: NCHCN 09:58
PROVIDERS: PCP Nurse Practitioner Family; Visit Provider Physician Assistant
DX: E78.5 Hyperlipidemia, unspecified (principal)
CPT/HCPCS: 80053; 80061

== ENCOUNTER 2024-06-06 13:23 | Outpatient (CLI) | payer BC, SELFPAY ==
--- NOTE | 2024-06-06 | DI.RAD_ITS ---
Exam(s) XR CHEST 2V PA LATERAL EXAM: XR CHEST 2V PA LATERAL CLINICAL HISTORY: R05.9 Cough unspecified TECHNIQUE: 2D digital imaging was performed. Two views. COMPARISON: CR XR CHEST 2V PA LATERAL from 03/18/2024 FINDINGS: HEART: Normal size. Aorta: Not dilated. PULMONARY VASCULATURE: Normal. MEDIASTINUM: Unremarkable. LUNGS: Clear. PLEURAL SPACE: No pleural effusion or pneumothorax. BONE:Unremarkable for age. SOFT TISSUES: Unremarkable. IMPRESSION: No acute abnormality. DATA REPOSITORY: RADIATION DOSE DELIVERED:
== END 2024-06-06 13:43 ==
LOC: DI 13:24
PROVIDERS: PCP Nurse Practitioner Family; Visit Provider Physician Assistant Medical
DX: R05.9 Cough, unspecified (principal)
CPT/HCPCS: 71046

== ENCOUNTER 2024-10-12 20:50 | Emergency (ER) | payer BC, SELFPAY ==
[2024-10-12] VITALS (15 sets, daily range): BP systolic 151–169; BP diastolic 62–118; PULSE 57–72; RESP 10–20; TEMP 36.6; O2SAT 93–99
--- NOTE | 2024-10-12 20:45 | RT.EKG_ITS ---
APPROVED REPORT Exam: Resting ECG Reason for Exam: abd/back pain Patient Location: E HR:57 bpm ECG Measurements Heart Rate 57 AXIS GA 174 P 42 QRSd 101 QRS -35 QT 389 T 25 QTc 378 Conclusion Sinus bradycardia...rate< 60 Left axis deviation...QRS axis (-30,-90) no STEMI
--- NOTE | 2024-10-12 21:13 | W.ED.GENAD ---
Discharge Plan Disposition Patient Disposition: Home Condition: Stable Discharge Details Clinical Impression: Epigastric pain Primary Care Provider: GOPAL TORRES ED Provider: Samir Baker Home Meds and New Rx's Prescriptions: Continued atorvastatin 40 mg tablet 40 mg PO DAILY valsartan 320 mg tablet 320 mg PO DAILY propranolol 80 mg capsule,extended release 24 hr 80 mg PO DAILY amlodipine 5 mg tablet 5 mg PO DAILY budesonide-formoterol [Symbicort] 160-4.5 mcg/actuation Hfa Aerosol Inhaler 2 puff inhalation BID Qty: 10.2 0RF Rx Instructions: For one month of treatment albuterol sulfate [ProAir HFA] 90 mcg/actuation HFA aerosol inhaler 2 puff inhalation QID PRNQty: 6.7 0RF pantoprazole 20 mg tablet,delayed release (DR/EC) 20 mg PO DAILY Patient Comments: TAKE ONE TABLET BY MOUTH EVERY DAY fluticasone propionate 50 mcg/actuation spray,suspension 1 spray INTRANASAL BID Patient Comments: USE ONE SPRAY IN EACH NOSTRIL TWO TIMES A DAY Discharge Instructions Instructions: Hydrocodone and Acetaminophen, Abdominal Pain, Adult ED Additional Instructions: You were seen in the emergency department for your right upper quadrant abdominal pain, this could be due to a gallstone that transiently got stuck in the common bile duct and cause a mild elevation of your lipase which is a pancreas enzyme, otherwise we see no pathology on CT, the gallbladder is partially distended but there is no evidence of common bile duct dilation. There is no evidence of aortic dissection, your cardiac enzymes are negative, your D-dimer blood test is negative indicating no blood clot is likely. Your white blood cell count is normal indicating this is not likely a severe infection, your kidney and liver enzymes are normal. If this becomes worse overnight please do return for surgical consult but otherwise try to get an outpatient ultrasound of your right upper quadrant from your primary care provider. Please use therapeutic dosing of Tylenol (acetamenophen) & Advil (ibuprofen) in an alternating fashion as follows: Take 1000mg of Tylenol every 6 hours without missing doses- that is 4 times per day. [place] in between the Tylenol dosings, take 400-600mg of Advil also on a 6 hour schedule, that is also 4 times per day. The daily maximum dosing of Tylenol is 4000mg, and the daily maximum dosing of Advil is 2400mg. This is safe to do for weeks. Please note that some common cold medications & prescription pain medications may contain acetamenophen and you need to read OTC drug labels and factor that in to maximum daily dosings. Referrals: GOPAL TORRES NP [Primary Care Provider] - Discharge Data Discharge Date/Time-TO BE ENTERED AT DEPARTURE: 10/12/24 22:54 HPI General Date/Time Provider Initiated Documentation: 10/12/24 20:51. HPI Narrative: 44 year-old male presents to ED today by POV/ambulating with a chief complaint of epigastric abdominal pain with onset last night. Quality described as burning pain radiating to back, no radiation to intractable nausea/vomiting, fever, respiratory distress, black/bloody stools, chest pain, hemoptysis, hematemesis. Severity is described as moderate. Palliating factors include nothing specific- pepto-bismol but pain came back today around 1600. Provoking factors include nothing specific. Events leading up to the incident/Associated Symptoms: Patient endorses history of aneurysm/hemorrhagic stroke. Patient not anticoagulated. Related Data Home Medications ?Medication ?Instructions ?Recorded ?Confirmed amlodipine 5 mg tablet 5 mg PO DAILY 03/13/24 10/12/24 atorvastatin 40 mg tablet 40 mg PO DAILY 03/13/24 10/12/24 propranolol 80 mg capsule,24 80 mg PO DAILY 03/13/24 10/12/24 hr,extended release valsartan 320 mg tablet 320 mg PO DAILY 03/13/24 10/12/24 albuterol sulfate 90 mcg/actuation 2 puff inhalation QID PRN #6.7 03/14/24 10/12/24 aerosol inhaler (ProAir HFA) grams budesonide-formoterol HFA 160 2 puff inhalation BID #10.2 grams 03/14/24 10/12/24 mcg-4.5 mcg/actuation aerosol inhaler (Symbicort) pantoprazole 20 mg tablet,delayed 20 mg PO DAILY 03/18/24 10/12/24 release fluticasone propionate 50 1 spray intranasal BID 10/12/24 10/12/24 mcg/actuation nasal spray,suspension Previous Rx's ?Medication ?Instructions ?Recorded albuterol sulfate 90 mcg/actuation 2 puff inhalation QID PRN #6.7 03/14/24 aerosol inhaler (ProAir HFA) grams budesonide-formoterol HFA 160 2 puff inhalation BID #10.2 grams 03/14/24 mcg-4.5 mcg/actuation aerosol inhaler (Symbicort) Allergies Allergy/AdvReac Type Severity Reaction Status Date / Time No Known Allergies Allergy Unverified 10/12/24 20:58 General Stated Complaint: [facility] MARKO: 3 Review of Systems All systems reviewed & are unremarkable except as noted in HPI and below Exam Narrative Exam Narrative: GENERAL APPEARANCE: Well-nourished, non-toxic, awake and alert, atraumatic, no acute distress. SKIN: Warm, pink, dry, intact, without rashes/lesions/ulcerations. HEAD: Normocephalic, atraumatic, normal hair distribution for gender/age. EYES: Normal conjunctiva, no exudates on lids/lashes. ENT: Nares patent, no circumoral cyanosis, no facial swelling NECK: Supple, trachea midline, painless cervical ROM, no carotid bruit bilaterally. LUNGS/CHEST: Lungs CTA bilaterally-no rhonchi/rales/wheezes diffusely, non-labored respirations, normal A/P diameter, symmetrical expansion, no chest wall deformity HEART (CV/PV): Regular rate and rhythm without murmur, no peripheral edema, no JVD. ABDOMEN: Soft, non-distended, no guarding, epigastric tenderness without overt Ervin sign. MSK: Normal ROM, no swelling/deformity to bilateral UEs or LEs, moving all extremities without weakness, no cyanosis, spine midline without tenderness, normal curvature. NEURO: Mental Status AAOx4 - alert to person, place, time, events No facial droop, no forehead involvement. Motor: No focal weakness - strength 5/5 in bilateral UEs and LEs, proximal and distal, symmetric. Sensory: sensation intact to light touch globally. Gait normal: patient ambulated without ataxia into ED room. PSYCH: euthymic, cooperative, pleasant, appropriate speech Course Vital Signs Vital signs: Vital Signs Temperature 36.6 C 10/12/24 20:53 Pulse 63 10/12/24 20:53 Respiratory Rate 18 10/12/24 20:53 Blood Pressure 159/96 H 10/12/24 20:53 Pulse Oximetry 99 10/12/24 20:53 Temperature 36.6 C 10/12/24 21:02 Temperature Source Oral 10/12/24 21:02 Pulse 63 10/12/24 21:02 Respiratory Rate 18 10/12/24 21:04 Respiratory Effort Normal, Non-Labored 10/12/24 21:04 Respiratory Depth Normal 10/12/24 21:04 Respiratory Pattern Normal 10/12/24 21:04 Blood Pressure 159/96 H 10/12/24 21:02 Blood Pressure Position Sitting 10/12/24 21:02 Pulse Oximetry 99 10/12/24 21:02 Oxygen Delivery Method Room Air 10/12/24 21:02 Oxygen Flow Rate 0 10/12/24 21:02 Pain Level 8 10/12/24 21:02 Medical Decision Making This dictation utilizes [id number] dictation software and may contain unedited grammatical errors. 44 year-old male presents to ED today by POV/ambulating with a chief complaint of epigastric abdominal pain with onset last night. Quality described as burning pain radiating to back, no radiation to intractable nausea/vomiting, fever, respiratory distress, black/bloody stools, chest pain, hemoptysis, hematemesis. Severity is described as moderate. Palliating factors include nothing specific- pepto-bismol but pain came back today around 1600. Provoking factors include nothing specific. Events leading up to the incident/Associated Symptoms: Patient endorses history of aneurysm/hemorrhagic stroke. Patients' medical history: Elevated LFTs, hyperlipidemia, intracranial hemorrhage, hypertension. Family and social history: Lives at home with his . Pertinent exam findings / vital signs include benign cardiopulmonary exam, benign abdomen with mild epigastric tenderness, no carotid bruit bilaterally, neuro intact Differential / pathologies of concern include aortic dissection with patient history, infection, gastritis, biliary pathology, peptic ulcer disease, biliary colic Diagnostic studies of: -CTA thorax/ABD/pelvis, aorta study, CBC, CMP, serial troponins, lipase, D-dimer, lactate, magnesium, EKG. -CBC shows no leukocytosis -CMP without actionable abnormality -Magnesium within normal limits -Serial troponins negative -Lipase mildly elevated at 92 -Lactate negative -D-dimer negative -EKG without ischemic changes, no S1Q3T3 -CTA shows no aortic pathology, shows partial distention of the gallbladder Interventions of: -Hydromorphone, Zofran. ED Course/Assessment/Plan: 44-year-old male presents with epigastric pain radiating to his back, CTA is negative for any aortic dissection, his workup for ACS is negative, he has mildly elevated lipase, question for early pancreatitis. Counseled the patient on pain control and bowel rest with possible improvement, strict return criteria for any worsening, provided hydrocodone to go for pain control. Findings not consistent with choledocholithiasis, biliary cholangitis, ACS, aortic dissection, infectious etiology. Disposition of epigastric pain. Patient verbalized understanding of the plan and return to ED criteria and engaged in shared decision making. Medical Records Medical records reviewed: Yes I reviewed the patient's medical records. Imaging Data Radiologic Study: Attestation: I personally reviewed and interpreted this imaging study as follows: Imaging: CT Scan Radiologist's impression: Exam: CTA Chest With Contrast CTA Abdomen and Pelvis With Contrast Exam date and time: 10/12/2024 9:37 PM Age: 44 years old Clinical indication: Abdominal pain; Localized; Right upper quadrant (ruq); Ruq and chest/radiating back pain. HX hemorrhagic stroke, also concern gall bladder TECHNIQUE: Imaging protocol: Computed tomographic angiography of the chest with contrast. Exam focused on the arteries. Computed tomographic angiography of the abdomen and pelvis with contrast. Exam focused on the arteries. 3D rendering (Not supervised by radiologist): MIP and/or 3D reconstructed images were created by the technologist. Radiation optimization: All CT scans at this facility use at least one of these dose optimization techniques: automated exposure control; mA and/or kV adjustment per patient size (includes targeted exams where dose is matched to clinical indication); or iterative reconstruction. Contrast material: OMNIPAQUE 350; Contrast volume: 125 ml; Contrast route: INTRAVENOUS (IV); COMPARISON: CT CHEST PE CTA 03/13/2024 6:55 PM FINDINGS: VASCULATURE: Pulmonary arteries: No pulmonary embolism identified. Aorta: No thoracic or abdominal aortic aneurysm or dissection. Celiac trunk and mesenteric arteries: Superior mesenteric, inferior mesenteric, and celiac arteries widely patent. Renal arteries: Right and left renal arteries widely patent. Right iliac arteries: Right common iliac, internal iliac, and external iliac arteries widely patent. Right femoral/popliteal arteries: Right common femoral and visualized proximal right superficial femoral arteries widely patent. Left iliac arteries: Left common iliac, internal iliac, and external iliac arteries widely patent. Left femoral/popliteal arteries: Left common femoral and visualized proximal left superficial femoral arteries widely patent. Thyroid: Thyroid gland partially excluded from view but grossly unremarkable through its visualized portion. CHEST: Lungs: No pulmonary consolidation. Pleural spaces: No pleural effusion or pneumothorax. Heart: Normal-sized heart. ABDOMEN AND PELVIS: Liver: Diffuse fatty infiltration of the liver. Gallbladder and biliary ducts: Gallbladder only partially distended. No calcified gallstones seen. No biliary dilatation. Pancreas: Normal appearing pancreas. Spleen: Normal appearing spleen. Adrenal glands: Normal appearing adrenal glands. Kidneys and ureters: Normal appearing kidneys. No hydronephrosis. No obstructing ureteral stones. Stomach and bowel: Stomach partially decompressed. No small bowel dilatation to suggest obstruction. Colon largely well evacuated of fecal material. No evidence of diverticulitis or colitis. Appendix: Normal appendix. Intraperitoneal space: No gross ascites or free air. Urinary bladder: Urinary bladder partially collapsed but grossly unremarkable, as seen. Reproductive: Normal-appearing prostate gland and seminal vesicles. Lymph nodes: No pathologically enlarged mediastinal or hilar lymph nodes. Scattered small mesenteric lymph nodes, nonspecific. Bones/joints: No acute fracture seen among the bones of the chest, abdomen, or pelvis. Small anterior vertebral osteophytes at multiple levels. Moderate discogenic degeneration at L5-S1. Soft tissues: No gross soft tissue mass or fluid collection seen in the chest wall. Diastasis recti. No significant ventral or inguinal hernia. IMPRESSION: 1. No thoracic or abdominal aortic aneurysm or dissection. 2. Diffuse fatty infiltration of the liver. Correlation with liver function testing recommended. 3. Gallbladder only partially distended. No calcified gallstones. No biliary dilatation. Dictated and Authenticated by: Monroe Cordero MD. Lab Data Lab results reviewed: Yes I reviewed the patient's lab results. Labs: Laboratory Tests Range/Units 10/12/24 10/12/24 21:02 22:08 WBC (4.4-10.8) 10^3/uL 8.73 RBC (4.36-5.78) 10^6/uL 5.31 Hgb (13.5-17.5) g/dL 15.2 Hct (40.0-50.0) % 44.1 MCV (80-95) fL 83 MCH (27.0-33.0) pg 28.6 MCHC (32.0-36.0) % 34.5 RDW (11.8-14.1) % 12.8 Plt Count (130-400) 10^3/uL 247 MPV (8.0-11.0) fL 9.5 Immature Gran % % 0.2 Neutrophils % % 60.0 Lymphocytes % % 28.4 Monocytes % % 9.4 Eosinophils % % 1.5 Basophils % % 0.5 Nucleated RBC % (0.0-0.3) % 0.0 Absolute Neutrophils (1.2-6.7) 10^3/uL 5.24 Absolute Lymphocytes (1.2-3.4) 10^3/uL 2.48 Absolute Monocytes (0.1-0.8) 10^3/uL 0.82 H Absolute Eosinophils (0.0-0.7) 10^3/uL 0.13 Absolute Basophils (0.0-0.2) 10^3/uL 0.04 D-Dimer (<500) ng/mlFEU 222 VBG Lactate (<or=2.0) mmol/L 0.9 Sodium (136-145) mmol/L 140 Potassium (3.5-5.1) mmol/L 4.0 Chloride (98-107) mmol/L 104 Carbon Dioxide (21.0-32.0) mmol/L 32.5 H Anion Gap (3-11) mmol/L 3.5 BUN (7-18) mg/dL 14 Creatinine (0.70-1.30) mg/dL 1.2 Est GFR (CKD-EPI 2020) (mL/min/1.73m2) 76.95 Glucose (74-106) mg/dL 98 Calcium (8.5-10.1) mg/dL 9.4 Magnesium (1.8-2.4) mg/dL 2.1 Total Bilirubin (0.2-1.0) mg/dL 0.99 AST (15-37) U/L 23 ALT (16-63) U/L 77 H Alkaline Phosphatase (46-116) U/L 112 Troponin I (<or=76) ng/L 7 6 Total Protein (6.4-8.2) g/dL 8.0 Albumin (3.4-5.0) g/dL 4.3 Lipase (<78) U/L 92 H Quality:SDOH Health Related Social Needs: No Data to Display PFSH All Active Problems (Updated 10/12/24 @ 22:30 by NYASIA Osorio) Epigastric pain (Acute) Bronchitis (Acute) Viral URI with cough (Acute) HTN (hypertension) (Chronic) Medical History (Updated 10/12/24 @ 22:30 by NYASIA Osorio) Elevated liver function tests Hyperlipemia, mixed Social History Smoking/Tobacco Use Status: Never Smoking risk assessment performed?: Yes Alcohol Intake: current Alcohol Intake frequency: 0-2 drinks per day Drug use: Never Substance use type: does not use Housing: house Do you feel safe at home: Yes Do you feel safe in your relationship?: Yes PAWSS Have you Been Recently Intoxicated or Drunk Within the Last 30 days?: No Have you Ever Experienced Previous Episodes of Alcohol Withdrawal?: No Have you ever Experienced Withdrawal Seizures?: No Have you ever Experienced Delirium Tremens(DT)s?: No Have you ever undergone Alcohol Rehabilitation Treatment (i.e, inpt ot outpatient treatment programs)?: No Have you ever Experienced Blackouts?: No Have you ever Combined Alcohol with other Downers within the last 90 days?: No Have you ever Combined Alcohol with any other Substance of Abuse during the last 90 days?: No Positive Blood Alcohol level on Presentation? [PCS.BAL]: No Evidence of Increased Autonomic Activity (i.e. HR>120, tremor, sweating, agitation, nausea)?: No Result: 0
--- NOTE | 2024-10-12 21:15 | DI.CT_ITS ---
Exam(s) CT THORAX ABD/PEL CTA EXAM: CT THORAX ABD/PEL CTA CLINICAL HISTORY: RUQ and chest/radiating back pain. TECHNIQUE: Imaging Protocol: Axial computed tomography images with coronal and sagittal reformatted images were created and reviewed CONTRAST MATERIAL: Intravenous: Omnipaque 350 Contrast volume:125 ml Oral: None COMPARISON: CT CT CHEST PE CTA from 03/13/2024 FINDINGS: CHEST: AORTA: The diameter of the ascending thoracic aorta is upper normal, measuring 3.6 cm. There is no e vidence of aortic dissection. No pericardial effusion. Diameter of the aortic arch and descending t horacic aorta is normal as is the diameter of the abdominal aorta. There is no significant stenosis the origin of the celiac and superior mesenteric arteries nor of the renal arteries and the inferior mesenteric artery is also patent. There is no significant atherosclerotic disease in the abdominal a yefri and aortic bifurcations. Common and external iliac arteries are unremarkable as are both common femoral arteries. The internal iliac arteries are patent bilaterally and nonaneurysmal. PULMONARY ARTERIES: There are no central pulmonary emboli evident. LUNGS: No infiltrates nor pleural effusions. No concerning nodules.. MEDIASTINUM: There is no hilar nor mediastinal adenopathy. CARDIAC: Heart size is normal. There is no pericardial effusion. No significant shift of the interv entricular septum. ABDOMEN: Abdominal aorta unremarkable There is no ascites. LIVER: Liver is hypodense implying steatosis. There are no discrete focal hepatic lesions identified . GALLBLADDER/BILIARY: No obvious gallbladder pathology. CBD is not dilated. PANCREAS: No evidence of pancreatic mass nor dilatation of the pancreatic duct. SPLEEN: Spleen is not enlarged. There are no intrasplenic lesions. ADRENALS: There are no significant adrenal masses. KIDNEYS: No cysts evident. No calculi nor hydronephrosis. No solid renal masses. ABDOMINAL AORTA: The abdominal aorta is not enlarged. LYMPH NODES: There is no retroperitoneal nor para-aortic adenopathy. No obvious mesenteric masses. ABDOMINAL WALL: No evidence of significant anterior abdominal wall hernia. GI: There is no evidence of bowel obstruction, free air, nor abscess.There are no ischemic appearing bowel loops. There are no large meandering collateral vessels in the mesentery. PELVIS: LYMPH NODES: There is no intrapelvic nor inguinal adenopathy. GI: No evidence of appendicitis.No evidence of sigmoid diverticulitis.Terminal ileum appears unremark able. URINARY BLADDER: No calculi nor masses evident REPRODUCTIVE: Prostate size normal. Seminal vesicles unremarkable. OSSEOUS: No significant osseous lesions. No fractures. IMPRESSION: 1. No evidence of aortic dissection nor pericardial effusion. 2. No acute pulmonary findings. No pleural effusions. 3. Hepatic steatosis. There no discrete focal hepatic lesions. 4. There are no ischemic appearing bowel loops. No ascites. RADIATION DOSE DELIVERED: 1,397.29mGy.cm Total DLP DATA REPOSITORY: All CT scans at this facility are submitted to the National Radiology Data Registry (NRDR) Dose Index Registry (DIR) with the [employer] (ACR). RADIATION OPTIMIZATION: All CT scans at this facility use at least one of these dose optimization te chniques: automated exposure control; mA and/or kV adjustment per patient size (includes targeted exa ms where dose is matched to clinical indication); or iterative reconstruction.
[2024-10-12 21:28] LABS: Lactate 0.9 mmol/L (<or=2.0)
[2024-10-12 21:29] LABS: Abs Immature Grans 0.02 10^3/uL (0.0-0.06); Absolute Basophil Count 0.04 10^3/uL (0.0-0.2); Absolute Eosinophil Count 0.13 10^3/uL (0.0-0.7); Absolute Lymphocyte Count 2.48 10^3/uL (1.2-3.4); Absolute Monocyte Count 0.82 10^3/uL (0.1-0.8); Absolute Neutrophil Count 5.24 10^3/uL (1.2-6.7); Basophils % 0.5 %; Eosinophils % 1.5 %; HCT 44.1 % (40.0-50.0); HGB 15.2 g/dL (13.5-17.5); Immature Grans % 0.2 %; Lymphocytes % 28.4 %; MCH 28.6 pg (27.0-33.0); MCHC 34.5 % (32.0-36.0); MCV 83 fL (80-95); MPV 9.5 fL (8.0-11.0); Monocytes % 9.4 %; Platelet Count 247 10^3/uL (130-400); RBC 5.31 10^6/uL (4.36-5.78); RDW 12.8 % (11.8-14.1); RDW-SD 38.5 fL; WBC 8.73 10^3/uL (4.4-10.8)
[2024-10-12] MEDS: Omnipaque 350 MG/ML 100 ML BTL IJ (21:30)
[2024-10-12] MEDS: Omnipaque 350 MG/ML 50 ML BTL IJ (21:31)
[2024-10-12] MEDS: Normal Saline - Diluent 50 ML VIAL IJ (21:33)
[2024-10-12] MEDS: Ondansetron 4 MG/2 ML VIAL IVP (21:40)
[2024-10-12] MEDS: HYDROmorphone 2 MG/ML SYR 1 MG IVP (21:41)
[2024-10-12 21:52] LABS: ALT 77 U/L (16-63); AST 23 U/L (15-37); Albumin 4.3 g/dL (3.4-5.0); Alkaline Phosphatase 112 U/L (46-116); Anion Gap 3.5 mmol/L (3-11); BUN 14 mg/dL (7-18); Bilirubin, Total 0.99 mg/dL (0.2-1.0); CO2 32.5 mmol/L (21.0-32.0); CREATININE 1.2 mg/dL (0.70-1.30); Calcium 9.4 mg/dL (8.5-10.1); Chloride 104 mmol/L (98-107); Estimated GFR 76.95 (mL/min/1.73m2); Glucose 98 mg/dL (74-106); Lipase 92 U/L (<78); Magnesium 2.1 mg/dL (1.8-2.4); Sodium 140 mmol/L (136-145); Troponin I 7 ng/L (<or=76)
[2024-10-12 21:54] LABS: D-Dimer 222 ng/mlFEU (<500)
--- NOTE | 2024-10-12 22:27 | DI.VRAD_ITS ---
PROCEDURE INFORMATION: Exam: CTA Chest With Contrast CTA Abdomen and Pelvis With Contrast Exam date and time: 10/12/2024 9:37 PM Age: 44 years old Clinical indication: Abdominal pain; Localized; Right upper quadrant (ruq); Ruq and chest/radiating back pain. HX hemorrhagic stroke, also concern gall bladder TECHNIQUE: Imaging protocol: Computed tomographic angiography of the chest with contrast. Exam focused on the arteries. Computed tomographic angiography of the abdomen and pelvis with contrast. Exam focused on the arteries. 3D rendering (Not supervised by radiologist): MIP and/or 3D reconstructed images were created by the technologist. Radiation optimization: All CT scans at this facility use at least one of these dose optimization techniques: automated exposure control; mA and/or kV adjustment per patient size (includes targeted exams where dose is matched to clinical indication); or iterative reconstruction. Contrast material: OMNIPAQUE 350; Contrast volume: 125 ml; Contrast route: INTRAVENOUS (IV); COMPARISON: CT CHEST PE CTA 03/13/2024 6:55 PM FINDINGS: VASCULATURE: Pulmonary arteries: No pulmonary embolism identified. Aorta: No thoracic or abdominal aortic aneurysm or dissection. Celiac trunk and mesenteric arteries: Superior mesenteric, inferior mesenteric, and celiac arteries widely patent. Renal arteries: Right and left renal arteries widely patent. Right iliac arteries: Right common iliac, internal iliac, and external iliac arteries widely patent. Right femoral/popliteal arteries: Right common femoral and visualized proximal right superficial femoral arteries widely patent. Left iliac arteries: Left common iliac, internal iliac, and external iliac arteries widely patent. Left femoral/popliteal arteries: Left common femoral and visualized proximal left superficial femoral arteries widely patent. Thyroid: Thyroid gland partially excluded from view but grossly unremarkable through its visualized portion. CHEST: Lungs: No pulmonary consolidation. Pleural spaces: No pleural effusion or pneumothorax. Heart: Normal-sized heart. ABDOMEN AND PELVIS: Liver: Diffuse fatty infiltration of the liver. Gallbladder and biliary ducts: Gallbladder only partially distended. No calcified gallstones seen. No biliary dilatation. Pancreas: Normal appearing pancreas. Spleen: Normal appearing spleen. Adrenal glands: Normal appearing adrenal glands. Kidneys and ureters: Normal appearing kidneys. No hydronephrosis. No obstructing ureteral stones. Stomach and bowel: Stomach partially decompressed. No small bowel dilatation to suggest obstruction. Colon largely well evacuated of fecal material. No evidence of diverticulitis or colitis. Appendix: Normal appendix. Intraperitoneal space: No gross ascites or free air. Urinary bladder: Urinary bladder partially collapsed but grossly unremarkable, as seen. Reproductive: Normal-appearing prostate gland and seminal vesicles. Lymph nodes: No pathologically enlarged mediastinal or hilar lymph nodes. Scattered small mesenteric lymph nodes, nonspecific. Bones/joints: No acute fracture seen among the bones of the chest, abdomen, or pelvis. Small anterior vertebral osteophytes at multiple levels. Moderate discogenic degeneration at L5-S1. Soft tissues: No gross soft tissue mass or fluid collection seen in the chest wall. Diastasis recti. No significant ventral or inguinal hernia. IMPRESSION: 1. No thoracic or abdominal aortic aneurysm or dissection. 2. Diffuse fatty infiltration of the liver. Correlation with liver function testing recommended. 3. Gallbladder only partially distended. No calcified gallstones. No biliary dilatation. Dictated and Authenticated by: Monroe Cordero MD. Orderin Olivia Dawson MD
[2024-10-12 22:31] LABS: Troponin I 6 ng/L (<or=76)
[2024-10-12] MEDS: HYDROcodone 5/Acetaminophen 325 TAB PO (22:53)
== END 2024-10-12 22:54 | disposition home or self-care (01) ==
LOC: ER 22:58
PROVIDERS: Emergency Provider Physician Assistant; PCP Nurse Practitioner Family
DX: R10.13 Epigastric pain (principal); I10 Essential (primary) hypertension; E78.5 Hyperlipidemia, unspecified; R00.1 Bradycardia, unspecified; Z86.73 Personal history of transient ischemic attack (TIA), and cerebral infarction without residual deficits
CPT/HCPCS: 36415; 71275; 80053; 83690; 93005; 96374; 96375; 99285; 74174; 83605; 83735; 84484; 85025; 85379; 93010; J1171; J2405; J3490; Q9967